=== PATIENT | female | born 1985 | race Caucasian/White ===

== ENCOUNTER 2022-11-17 20:17 | Outpatient (REF) | payer OTHER, SELFPAY ==
[2022-11-22 09:09] LABS: Age Gdln ACOG Testing Note (.); HPV Aptima Negative (Negative); IGP, Aptima HPV, rfx 16/18,45 Note (.)
== END 2022-11-17 20:18 | disposition home or self-care (01) ==
LOC: LAB 20:17
PROVIDERS: Visit Provider Obstetrics & Gynecology
DX: Z01.419 Encounter for gynecological examination (general) (routine) without abnormal findings (principal)
CPT/HCPCS: 87624; G0145

== ENCOUNTER 2023-01-15 11:17 | Outpatient (OUT) | payer OTHER, SELFPAY ==
[2023-01-15 12:33] LABS: Basophils Absolute Auto 0.1 10^3/uL (0.0-0.1); Basophils Percent Auto 0.4 % (0.2-2.0); Eosinophils Absolute Auto 0.2 10^3/uL (0.0-0.7); Eosinophils Percent Auto 1.3 % (0.9-7.0); Hematocrit 38.6 % (36.0-48.0); Hemoglobin 12.7 g/dL (12.0-16.0); Immature Granulocytes Abs Auto 0.11 10^3/uL (0.00-0.03); Immature Granulocytes Pct Auto 0.9 % (0.0-0.5); Lymphocytes Absolute Auto 2.2 10^3/uL (1.2-3.8); Lymphocytes Percent Auto 18.2 % (20.5-60.0); Mean Corpuscular HGB Conc 32.9 g/dL (29.9-35.2); Mean Corpuscular Hemoglobin 29.8 pg (26.7-34.0); Mean Corpuscular Volume 90.6 fL (81.0-99.0); Mean Platelet Volume 8.8 fL (9.5-13.5); Monocytes Absolute Auto 0.5 10^3/uL (0.3-0.8); Neutrophils Absolute Auto 8.9 10^3/uL (1.4-6.5); Neutrophils Percent Auto 75.2 % (43.0-75.0); Platelet Count 297 10^3/uL (150-450); Red Blood Count 4.26 10^6/uL (4.20-5.40); Red Cell Distribution Width 13.5 % (11.0-15.0); White Blood Count 11.8 10^3/uL (4.0-11.0)
[2023-01-15 12:39] LABS: Glucose 1 Hour 148 mg/dL
== END 2023-01-15 11:18 | disposition home or self-care (01) ==
LOC: LAB 11:17
PROVIDERS: Visit Provider Physician Assistant
DX: Z34.92 Encounter for supervision of normal pregnancy, unspecified, second trimester (principal)
CPT/HCPCS: 36415; 82950; 85025

== ENCOUNTER 2023-01-22 09:14 | Outpatient (OUT) | payer OTHER, SELFPAY ==
[2023-01-22 09:32] LABS: Glucose Fasting 94 mg/dL (74-106)
[2023-01-22 11:18] LABS: Glucose 1 Hour 163 mg/dL
[2023-01-22 12:08] LABS: Glucose 2 Hour 155 mg/dL
[2023-01-22 13:03] LABS: Glucose 3 Hour 140 mg/dL
== END 2023-01-22 09:15 | disposition home or self-care (01) ==
LOC: LAB 09:15
PROVIDERS: Visit Provider Obstetrics & Gynecology
DX: O99.810 Abnormal glucose complicating pregnancy (principal)
CPT/HCPCS: 36415; 82951; 82952

== ENCOUNTER 2023-02-12 12:52 | Outpatient (OUT) | payer OTHER, SELFPAY ==
--- NOTE | 2023-02-12 12:55 | US_ITS ---
The [address] [address] Patient Name: GERTRUDIS MARINELLI MRN: [id number] date: 1985 Sex: F Assigned Patient Location: Current Patient Location: Accession/Order Number: [id number] Exam Date: 02/12/2023 12:55 Report Date: 02/13/2023 02:01 At the request of: ALVIN SPEAR Procedure: US OB growth EXAMINATION: US OB growth HISTORY: size inconsistent with dates O26.849 COMPARISON: No relevant comparison available. FINDINGS: Heart Rate: 145.2 bpm Number: 1.0 Position: CEPHALIC Amniotic Fluid Volume: 18.1 cm Maximum Vertical Pocket: 5.67 m BIOMETRY: BPD: 7.7 cm cm; 30 weeks 6 days ; 93% HC: 27.2 cmcm; 29 weeks 5 days; 46% AC: 24.1 cm cm; 28 weeks 3 days; 33% FL: 5.6 cm cm; 29 weeks 3 days; 55% EFW: 1323.2 grams; 49% FL/AC: 23.2 FL/BPD: 72.6 HC/AC: 1.1 GESTATIONAL AGE: Age by EDC: 28 weeks 5 days BARTOLO by EDC: 05/02/2023 Age by US: 29 weeks 4 days BARTOLO by US: 04/26/2023 US/US OB growth IMPRESSION: 1. Single live intrauterine with growth detailed above. Electronically authenticated by: TRAM DE LA CRUZ Date: 02/13/2023 02:01
== END 2023-02-12 12:53 | disposition home or self-care (01) ==
LOC: US 12:52
PROVIDERS: Visit Provider Obstetrics & Gynecology
DX: O26.843 Uterine size-date discrepancy, third trimester (principal); Z3A.28 28 weeks gestation of pregnancy
CPT/HCPCS: 76816

== ENCOUNTER 2023-02-15 10:15 | Outpatient (OUT) | payer OTHER, SELFPAY ==
[2023-02-15 11:34] LABS: Alanine Aminotransferase 16 U/L (14-59); Albumin Globulin Ratio 0.7; Albumin Level 2.6 g/dL (3.4-5.0); Alkaline Phosphatase 100 U/L (46-116); Aspartate Amino Transferase 11 U/L (15-37); BUN Creatinine Ratio 12.5; Bilirubin Total 0.3 mg/dL (0.2-1.0); Calcium 9.3 mg/dL (8.5-10.1); Carbon Dioxide 22.3 mmol/L (21.0-32.0); Chloride 105 mmol/L (98-107); Estimated GFR (African America >60 (>=60); Estimated GFR (Non-African Ame >60 (>=60); Globulin 3.8 g/dL; Glucose 112 mg/dL (74-106); Potassium 3.3 mmol/L (3.5-5.1); Sodium 140 mmol/L (136-145); Total Protein 6.4 g/dL (6.4-8.2)
[2023-02-15 15:48] LABS: Total Volume 24 Hour Urine 1750 mL/24hr
== END 2023-02-15 10:16 | disposition home or self-care (01) ==
LOC: LAB 10:15
PROVIDERS: Visit Provider Obstetrics & Gynecology
DX: O10.919 Unspecified pre-existing hypertension complicating pregnancy, unspecified trimester (principal); Z3A.00 Weeks of gestation of pregnancy not specified
CPT/HCPCS: 36415; 80053; 84156

== ENCOUNTER 2023-02-16 17:26 | Outpatient (OUT) | payer OTHER, SELFPAY ==
[2023-02-16 17:45] VITALS: BP 136/64; PULSE 86
[2023-02-16 17:51] VITALS: BP 103/57; PULSE 96
--- NOTE | 2023-02-16 18:27 | US_ITS ---
[address] [address] Patient Name: GERTRUDIS MARINELLI MRN: [facility]:[id number] date: 1985 Sex: F Assigned Patient Location: [facility] Current Patient Location: [facility] Accession/Order Number: [id number] Exam Date: 02/16/2023 18:33 Report Date: 02/16/2023 20:04 At the request of: ALVIN SPEAR Procedure: US OB cervical length EXAM: US OB cervical length HISTORY: abdominal pain COMPARISON: None. TECHNIQUE: Limited OB ultrasound is performed for evaluation of cervical length FINDINGS: Single live intrauterine seen with which presentation and longitudinal lie. heart rate is 144 beats per minute. The cervix appears closed and measures 3.5 cm in length. US/US OB cervical length IMPRESSION: Single live intrauterine seen with which presentation and longitudinal lie. heart rate is 144 beats per minute. The cervix appears closed and measures 3.5 cm in length. Electronically authenticated by: FRANK BELTRAN Date: 02/16/2023 20:04
[2023-02-16 18:58] LABS: Hematocrit 36.2 % (36.0-48.0); Hemoglobin 12.1 g/dL (12.0-16.0); Mean Corpuscular HGB Conc 33.4 g/dL (29.9-35.2); Mean Corpuscular Hemoglobin 30.7 pg (26.7-34.0); Mean Corpuscular Volume 91.9 fL (81.0-99.0); Mean Platelet Volume 8.9 fL (9.5-13.5); Platelet Count 281 10^3/uL (150-450); Red Blood Count 3.94 10^6/uL (4.20-5.40); Red Cell Distribution Width 13.1 % (11.0-15.0); White Blood Count 14.8 10^3/uL (4.0-11.0)
--- NOTE | 2023-02-16 19:02 | PC.NURSE ---
1844 clenches up in pain, states feels pain across epigastric area and all across lower abdomen, tearful, holds belly with pain-efm off and up to void then labs done
--- NOTE | 2023-02-16 19:07 | PC.NURSE ---
cervical length done
[2023-02-16 19:12] LABS: Alanine Aminotransferase 18 U/L (14-59); Aspartate Amino Transferase 13 U/L (15-37); Estimated GFR (African America >60 (>=60); Estimated GFR (Non-African Ame >60 (>=60)
--- NOTE | 2023-02-16 19:18 | US_ITS ---
[address] [address] Patient Name: GERTRUDIS MARINELLI MRN: [id number] date: 1985 Sex: F Assigned Patient Location: [facility] Current Patient Location: LAB Accession/Order Number: [id number] Exam Date: 02/16/2023 19:20 Report Date: 02/16/2023 21:02 At the request of: ALVIN SPEAR Procedure: US appendix RIGHT UPPER QUADRANT AND APPENDIX ULTRASOUND HISTORY: 3 week history of abdominal pain COMPARISON: None. TECHNIQUE: Sonography of the right upper quadrant and appendix was performed. Images were obtained and stored in a permanent archive. RESULTS: Pancreas: Limited evaluation due to overlying bowel gas. Liver: Echotexture: Normal, homogeneous. Echogenicity: Normal Surface contour: Smooth Lesions: None. Biliary: No intrahepatic biliary duct dilation. CBD: 0.4 cm at the hilum. Gallbladder: Normal caliber -Contents: No cholelithiasis -Wall: Normal -Other: No pericholecystic fluid. Right Kidney: No hydronephrosis. Ascites: None. Appendix: Nonvisualized due to overlying bowel gas. Benign-appearing lymph nodes in the right lower quadrant which measure 3.8 x 1.3 x 0.6 cm and 1.6 x 1.2 x 1.4 cm. . US/US appendix IMPRESSION: NORMAL SONOGRAPHIC APPEARANCE OF THE RIGHT UPPER QUADRANT. NONVISUALIZED APPENDIX. Electronically authenticated by: ANATOLY GUERRA Date: 02/16/2023 21:02
--- NOTE | 2023-02-16 19:18 | US_ITS ---
[address] [address] Patient Name: GERTRUDIS MARINELLI MRN: [id number] date: 1985 Sex: F Assigned Patient Location: [facility] Current Patient Location: LAB Accession/Order Number: [id number] Exam Date: 02/16/2023 19:20 Report Date: 02/16/2023 21:02 At the request of: ALVIN SPEAR Procedure: US right upper quadrant RIGHT UPPER QUADRANT AND APPENDIX ULTRASOUND HISTORY: 3 week history of abdominal pain COMPARISON: None. TECHNIQUE: Sonography of the right upper quadrant and appendix was performed. Images were obtained and stored in a permanent archive. RESULTS: Pancreas: Limited evaluation due to overlying bowel gas. Liver: Echotexture: Normal, homogeneous. Echogenicity: Normal Surface contour: Smooth Lesions: None. Biliary: No intrahepatic biliary duct dilation. CBD: 0.4 cm at the hilum. Gallbladder: Normal caliber -Contents: No cholelithiasis -Wall: Normal -Other: No pericholecystic fluid. Right Kidney: No hydronephrosis. Ascites: None. Appendix: Nonvisualized due to overlying bowel gas. Benign-appearing lymph nodes in the right lower quadrant which measure 3.8 x 1.3 x 0.6 cm and 1.6 x 1.2 x 1.4 cm. . US/US right upper quadrant IMPRESSION: NORMAL SONOGRAPHIC APPEARANCE OF THE RIGHT UPPER QUADRANT. NONVISUALIZED APPENDIX. Electronically authenticated by: ANATOLY GUERRA Date: 02/16/2023 21:02
--- NOTE | 2023-02-16 20:13 | PC.NURSE ---
us [email or web address] states completed us of nano trejo and appendix
[2023-02-16] MEDS: ACETAMINOPHEN 500 MG TABLET 1000 MG PO (21:00)
[2023-02-16] MEDS: ONDANSETRON PF 4 MG/2 ML VIAL IV (21:00)
[2023-02-16] MEDS: 0.9 % SODIUM CHLORIDE 1,000 ML 1000 ML IV (21:01)
[2023-02-16] MEDS: PANTOPRAZOLE SODIUM 40 MG VIAL IV (21:06)
[2023-02-16] MEDS: 0.9 % SODIUM CHLORIDE 1,000 ML 125 ML IV (21:47)
[2023-02-16 22:23] VITALS: BP 144/77; PULSE 91; RESP 16
[2023-02-16] MEDS: LABETALOL HCL 200 MG TABLET 100 MG PO (22:25)
[2023-02-17 01:10] VITALS: BP 112/57; PULSE 95; RESP 16; TEMP 36.8
[2023-02-17 01:26] LABS: Bilirubin Urine SMALL (NEGATIVE); Blood Urine NEGATIVE (NEGATIVE); Clarity Urine CLEAR (CLEAR); Color Urine YELLOW (YELLOW); Glucose Urine UA NEGATIVE (NEGATIVE); Ketones Urine >=80 mg/dL (NEGATIVE); Leukocyte Esterase Urine NEGATIVE (NEGATIVE); Nitrite Urine NEGATIVE (NEGATIVE); Protein Urine TRACE mg/dL (NEG/TRACE); Specific Gravity Urine 1.025 (1.005-1.025); pH Urine 6.5 (5.0-9.0)
[2023-02-17 04:56] LABS: Bilirubin Urine SMALL (NEGATIVE); Blood Urine NEGATIVE (NEGATIVE); Clarity Urine CLEAR (CLEAR); Color Urine YELLOW (YELLOW); Glucose Urine UA NEGATIVE (NEGATIVE); Ketones Urine >=80 mg/dL (NEGATIVE); Leukocyte Esterase Urine NEGATIVE (NEGATIVE); Nitrite Urine NEGATIVE (NEGATIVE); Protein Urine TRACE mg/dL (NEG/TRACE); Specific Gravity Urine 1.025 (1.005-1.025); pH Urine 6.5 (5.0-9.0)
[2023-02-17 04:58] LABS: Urine Microscopic Indicated YES
[2023-02-17 04:59] LABS: Squamous Epithelial Cell Urine MANY #/LPF (NONE/RARE)
[2023-02-17 05:00] LABS: Mucus Urine LARGE (NONE SEEN)
[2023-02-17 05:03] LABS: Bacteria Urine MODERATE #/HPF (NONE SEEN); Crystals Seen? None Seen #/HPF (None Seen); RBC Urine 0-2 #/HPF (0-2); WBC Urine 0-2 #/HPF (NONE SEEN)
[2023-02-17 05:04] LABS: Cast Seen? NONE SEEN #/LPF (NONE SEEN); Urine Culture Indicated YES
[2023-02-17 05:48] VITALS: BP 127/58; PULSE 83; RESP 16; TEMP 36.8
--- NOTE | 2023-02-17 07:15 | P.OBPN_ITS ---
OB - PN: Subj Subjective Interval history: 37 yo at 29 3/7wks with epigastric pain, pt complains of mild nausea. denies bm, positive flatus, denies vomiting Exam Constitutional Vital Signs, click to edit/add: Last Vital Signs Temp 98.2 F 02/17/23 05:48 Pulse 83 02/17/23 05:48 Resp 16 02/17/23 05:48 BP 127/58 02/17/23 05:48 Documenting provider has reviewed patient's vital signs: yes Common normals: no apparent distress Respiratory Common normals: normal respiratory effort and clear to auscultation bilaterally Cardio Common normals: regular rate and regular rhythm GI Common normals: Normal to inspection, nondistended, normoactive bowel sounds present Extremity Common normals: no clubbing, cyanosis or edema and no calf tenderness Results Labs Labs: Short CBC 02/16/23 Range/Units 18:50 WBC 14.8 H (4.0-11.0) 10^3/uL Hgb 12.1 (12.0-16.0) g/dL Hct 36.2 (36.0-48.0) % Plt Count 281 (150-450) 10^3/uL BMP 02/16/23 18:50 BUN 6.0 L Creatinine 0.51 L Liver Function 02/16/23 Range/Units 18:50 AST 13 L (15-37) U/L ALT 18 (14-59) U/L Urine 02/16/23 02/17/23 Range/Units 00:30 00:00 Urine Color Yellow Yellow (YELLOW) Urine Clarity Clear Clear (CLEAR) Urine pH 6.5 6.5 (5.0-9.0) Ur Specific [place] 1.025 1.025 (1.005-1.025) Urine Protein Trace Trace (NEG/TRACE) mg/dL Urine Glucose (UA) Negative Negative (NEGATIVE) mg/dL OB - PN: A/P Assessment and Plan (1) Epigastric pain: Plan iup at 29 3/7wks, epigastric pain-pain resolved, rx for colace, labs and ultrasound reviewed, fu as scheduled, precautions given Time Spent with Patient Time: Total time spent is greater than 50% in coordination of care (as documented) at patient's floor/unit and/or counseling patient: Total time spent with greater than 50% in coordination of care (as documented) at patient's floor/unit and/or counseling patient: 25 - 35 minutes
[2023-02-17 07:41] VITALS: BP 141/84; PULSE 93
[2023-02-17 07:50] VITALS: RESP 18; TEMP 37
--- NOTE | 2023-02-17 08:33 | PC.NURSE ---
appears comfortable and cheerful, states feeling much better today, seen by Dr Martínez and orders breakfast. states started feeling better now after receiving protonix and has had BM this am
[2023-02-17] MEDS: ONDANSETRON 4 MG RAPDIS TABLET SL (09:38)
--- NOTE | 2023-02-17 10:24 | PC.NURSE ---
0940 medicated for nausea with zofran
--- NOTE | 2023-02-17 10:24 | PC.NURSE ---
sitting up in bed taking breakfast,, feels better after zofran dose
[2023-02-17] MEDS: LABETALOL HCL 200 MG TABLET 100 MG PO (10:35)
== END 2023-02-17 10:44 | disposition home or self-care (01) ==
LOC: FBCO 17:26 → FBC 17:32
PROVIDERS: Visit Provider Obstetrics & Gynecology
DX: O26.893 Other specified pregnancy related conditions, third trimester (principal); R10.13 Epigastric pain; Z3A.29 29 weeks gestation of pregnancy
CPT/HCPCS: 36415; 76705; 76817; 81001; 81003; 82565; 84450; 84460; 84520; 85027; 87086; 96374; 96375; G0378; G0379

== ENCOUNTER 2023-03-08 07:54 | Outpatient (OUT) | payer OTHER, SELFPAY ==
--- NOTE | 2023-03-08 16:00 | US_ITS ---
[address] [address] Patient Name: GERTRUDIS MARINELLI MRN: [id number] date: 1985 Sex: F Assigned Patient Location: [facility] Current Patient Location: US Accession/Order Number: [id number] Exam Date: 03/08/2023 16:05 Report Date: 03/09/2023 07:30 At the request of: ALVIN SPEAR Procedure: US OB growth EXAMINATION: US OB growth HISTORY: SIZE INCONSISTENT WITH DATES O26.649 COMPARISON: No relevant comparison available. FINDINGS: Heart Rate: 141.4 bpm Amniotic Fluid Volume: 16.9 cm Number: 1.0 Position: Cephalic presentation, longitudinal lie Placenta:r areas of anechoic echogenicity likely a central, 2.9 cm Maximum Vertical Pocket: 6.5 cm cm 4.2 cm cm 2.4 cm cm 3.7 cm cm BIOMETRY: BPD: 8.6 cm cm; 34 weeks 5 days; 96% HC: 32.2 cmcm; 36 weeks 2 days , > 97% AC: 28.1 cm cm; 32 weeks 1 days, 49% FL: 6.1 cm cm; 31 weeks 5 days; 25.5 % % EFW: 2014.6 grams, 40 lbs. 7 oz., 55% FL/AC: 21.7 FL/BPD: 71.0 HC/AC: 1.1 GESTATIONAL AGE: Age by EDC: 32 weeks 1 days BARTOLO by EDC: 05/02/2023 Age by US: 33 weeks 5 days BARTOLO by US: 04/21/2023 US/US OB growth IMPRESSION: BPD and head circumference greater than the 95th percentile, otherwise normal interval growth Electronically authenticated by: ADRIANA ZHANG Date: 03/09/2023 07:30
--- NOTE | 2023-03-08 16:00 | US_ITS ---
[address] [address] Patient Name: GERTRUDIS MARINELLI MRN: [id number] date: 1985 Sex: F Assigned Patient Location: [facility] Current Patient Location: US Accession/Order Number: [id number] Exam Date: 03/08/2023 16:05 Report Date: 03/09/2023 07:30 At the request of: ALVIN SPEAR Procedure: US OB BPP w non-stress EXAMINATION: US OB growth HISTORY: SIZE INCONSISTENT WITH DATES O26.649 COMPARISON: No relevant comparison available. FINDINGS: Heart Rate: 141.4 bpm Amniotic Fluid Volume: 16.9 cm Number: 1.0 Position: Cephalic presentation, longitudinal lie Placenta:r areas of anechoic echogenicity likely a central, 2.9 cm Maximum Vertical Pocket: 6.5 cm cm 4.2 cm cm 2.4 cm cm 3.7 cm cm BIOMETRY: BPD: 8.6 cm cm; 34 weeks 5 days; 96% HC: 32.2 cmcm; 36 weeks 2 days , > 97% AC: 28.1 cm cm; 32 weeks 1 days, 49% FL: 6.1 cm cm; 31 weeks 5 days; 25.5 % % EFW: 2014.6 grams, 40 lbs. 7 oz., 55% FL/AC: 21.7 FL/BPD: 71.0 HC/AC: 1.1 GESTATIONAL AGE: Age by EDC: 32 weeks 1 days BARTOLO by EDC: 05/02/2023 Age by US: 33 weeks 5 days BARTOLO by US: 04/21/2023 US/US OB BPP w non-stress IMPRESSION: BPD and head circumference greater than the 95th percentile, otherwise normal interval growth Electronically authenticated by: ADRIANA ZHANG Date: 03/09/2023 07:30
[2023-03-08 16:55] VITALS: BP 139/85; PULSE 88
== END 2023-03-08 17:20 | disposition home or self-care (01) ==
LOC: US 07:58 → FBC 15:58
PROVIDERS: Visit Provider Obstetrics & Gynecology
DX: O26.843 Uterine size-date discrepancy, third trimester (principal); Z3A.32 32 weeks gestation of pregnancy
CPT/HCPCS: 76816; 76818

== ENCOUNTER 2023-03-11 07:26 | Outpatient (OUT) | payer OTHER, SELFPAY ==
[2023-03-11 15:45] VITALS: BP 131/88; PULSE 108
== END 2023-03-11 16:14 ==
LOC: FBCO 07:26 → FBC 15:37
PROVIDERS: Visit Provider Obstetrics & Gynecology
DX: O26.843 Uterine size-date discrepancy, third trimester (principal); Z3A.00 Weeks of gestation of pregnancy not specified
CPT/HCPCS: 59025

== ENCOUNTER 2023-03-15 07:35 | Outpatient (OUT) | payer OTHER, SELFPAY ==
--- NOTE | 2023-03-15 16:16 | US_ITS ---
[address] [address] Patient Name: GERTRUDIS MARINELLI MRN: [facility]:[id number] date: 1985 Sex: F Assigned Patient Location: [facility] Current Patient Location: Accession/Order Number: [id number] Exam Date: 03/15/2023 16:25 Report Date: 03/16/2023 21:07 At the request of: ALVIN SPEAR Procedure: US OB BPP w non-stress EXAMINATION: US OB BPP w non-stress HISTORY: SIZE INCONSISTENT WITH DATES O28.849 COMPARISON: Ultrasound OB biophysical 03/08/2023 TECHNIQUE: Ultrasound biophysical profile was performed in the radiology department. BREATHING MOVEMENTS: 2.0 GROSS BODY MOVEMENTS: 2.0 TONE: 2.0 QUALITATIVE AMNIOTIC FLUID VOLUME: 2.0 PRESENTATION: CEPHALIC HEART RATE: 150.0 bpm AMNIOTIC FLUID VOLUME: 18.2 cm GESTATIONAL AGE: 33 weeks 1 days CONCLUSION: 1. Total biophysical profile score 8.0. 2. Multiple small, irregular anechoic areas scattered within the placenta; nonspecific but likely venous lakes. Electronically authenticated by: TRAM DE LA CRUZ Date: 03/16/2023 21:07
[2023-03-15 16:24] VITALS: BP 138/92; PULSE 105
== END 2023-03-15 17:01 | disposition home or self-care (01) ==
LOC: US 07:37 → FBC 15:58
PROVIDERS: Visit Provider Obstetrics & Gynecology
DX: O26.843 Uterine size-date discrepancy, third trimester (principal); Z3A.33 33 weeks gestation of pregnancy
CPT/HCPCS: 76818

== ENCOUNTER 2023-03-18 07:28 | Outpatient (OUT) | payer OTHER, SELFPAY ==
[2023-03-18 15:46] VITALS: BP 134/81; PULSE 104
== END 2023-03-18 16:15 | disposition home or self-care (01) ==
LOC: FBCO 07:39 → FBC 15:36
PROVIDERS: Visit Provider Obstetrics & Gynecology
DX: O26.843 Uterine size-date discrepancy, third trimester (principal)
CPT/HCPCS: 59025

== ENCOUNTER 2023-03-22 17:45 | Observation (INO) | payer OTHER, SELFPAY ==
[2023-03-22] VITALS (13 sets, daily range): BP systolic 132–180; BP diastolic 80–112; PULSE 96–109; RESP 18–20; TEMP 36.5
--- NOTE | 2023-03-22 16:01 | US_ITS ---
[address] [address] Patient Name: GERTRUDIS MARINELLI MRN: [id number] date: 1985 Sex: F Assigned Patient Location: [facility] Current Patient Location: Accession/Order Number: [id number] Exam Date: 03/22/2023 16:10 Report Date: 03/23/2023 16:44 At the request of: ALVIN SPEAR Procedure: US OB BPP w non-stress EXAMINATION: US OB BPP w non-stress HISTORY: SIZE INCONSISTENT WITH DATES O28.849 COMPARISON: No relevant comparison available. TECHNIQUE: Ultrasound biophysical profile was performed in the radiology department. . FINDINGS: BREATHING MOVEMENTS: 2 GROSS BODY MOVEMENTS: 2 TONE: 2 QUALITATIVE AMNIOTIC FLUID VOLUME: 2 PRESENTATION: BREECH HEART RATE: 136.4 bpm H.B./min AMNIOTIC FLUID VOLUME: 19.0 cm cm GESTATIONAL AGE: 34 weeks 1 days CONCLUSION: Total biophysical profile score: 8 Electronically authenticated by: ADRIANA ZHANG Date: 03/23/2023 16:44
[2023-03-22] MEDS: BETAMETHASONE ACE/BETAMETHASONE SOD PHOS 30 MG/5 ML 12 MG IM (18:12)
[2023-03-22] MEDS: LABETALOL HCL 200 MG TABLET PO (18:18)
[2023-03-22 18:28] LABS: Basophils Percent Auto 0.2 % (0.2-2.0); Eosinophils Absolute Auto 0.1 10^3/uL (0.0-0.7); Eosinophils Percent Auto 1.1 % (0.9-7.0); Hematocrit 35.5 % (36.0-48.0); Hemoglobin 11.6 g/dL (12.0-16.0); Immature Granulocytes Abs Auto 0.12 10^3/uL (0.00-0.03); Immature Granulocytes Pct Auto 0.9 % (0.0-0.5); Lymphocytes Absolute Auto 2.1 10^3/uL (1.2-3.8); Lymphocytes Percent Auto 16.5 % (20.5-60.0); Mean Corpuscular HGB Conc 32.7 g/dL (29.9-35.2); Mean Corpuscular Hemoglobin 29.3 pg (26.7-34.0); Mean Corpuscular Volume 89.6 fL (81.0-99.0); Mean Platelet Volume 9.5 fL (9.5-13.5); Monocytes Absolute Auto 0.8 10^3/uL (0.3-0.8); Monocytes Percent Auto 6.5 % (1.7-12.0); Neutrophils Absolute Auto 9.6 10^3/uL (1.4-6.5); Neutrophils Percent Auto 74.8 % (43.0-75.0); Platelet Count 270 10^3/uL (150-450); Red Blood Count 3.96 10^6/uL (4.20-5.40); Red Cell Distribution Width 12.8 % (11.0-15.0); White Blood Count 12.8 10^3/uL (4.0-11.0)
[2023-03-22 18:39] LABS: Alanine Aminotransferase 24 U/L (14-59); Aspartate Amino Transferase 12 U/L (15-37); Lactate Dehydrogenase 161 U/L (81-234); Uric Acid 3.4 mg/dL (2.6-6.0)
--- NOTE | 2023-03-22 18:46 | PC.NURSE ---
1750: transferred to room 252 and plan of care discussed. 1805: celestone 12 mg IM. 1820 : labetalol 200 mg po
--- NOTE | 2023-03-22 19:41 | PC.NURSE ---
1830: 24 hour urine started. 1904: Dr Martínez informed of lab results and BP's- orders received and patient informed of plan of care- present. 1914: report to Aubrie Carpenter RN . patient denies headache, blurred vision, or epigastric pain.
[2023-03-23 01:50] VITALS: BP 141/92; PULSE 121
[2023-03-23] MEDS: LABETALOL HCL 200 MG TABLET PO ×2 (01:51→12:52)
[2023-03-23 04:36] VITALS: BP 134/77; PULSE 111
[2023-03-23 04:45] VITALS: RESP 16
--- NOTE | 2023-03-23 07:43 | W.PC.ACHO ---
Registration Status: ADM FERMIN Primary Language: Preferred Language: Active Medications Generic Name Dose Route Start Last Admin Trade Name Eunice PRN Reason Stop Dose Admin Labetalol HCl 200 mg 03/22/23 18:30 03/22/23 18:18 Labetalol Hcl 200 Mg Tablet PO 200 mg BID ADARSH Administration Labetalol HCl 200 mg 03/23/23 02:00 03/23/23 01:51 Labetalol Hcl 200 Mg Tablet PO 200 mg TID ADARSH Administration Respiratory Oxygen Delivery Method Room Air Oxygen Delivery Method Room Air Oxygen Delivery Method Room Air Cardiology Heart Sounds Strong,Regular Heart Sounds Strong,Regular Renal Bladder Pattern Continent Bladder Pattern Continent
[2023-03-23 08:13] VITALS: BP 133/75; PULSE 105
--- NOTE | 2023-03-23 09:19 | PM.OBPN ---
OB - PN: Subj Subjective Interval history: 37 yo at 34wks presents for nst and found to elevated bp, pt non complaint with meds, pt denies n.f.c.v.d, pt denies epigastric pain, headaches or vision changes, pt has no complaints, positive fm, neg ctxns, vb, lof, neg urinary symptoms Patient comments: no complaints Exam Constitutional Vital Signs, click to edit/add: Last Vital Signs Temp 97.7 F 03/22/23 21:54 Pulse 105 H 03/23/23 08:13 Resp 16 03/23/23 04:45 BP 133/75 03/23/23 08:13 O2 Del Method Room Air 03/23/23 04:45 Documenting provider has reviewed patient's vital signs: yes Common normals: no apparent distress Respiratory Common normals: normal respiratory effort and clear to auscultation bilaterally Cardio Common normals: regular rate and regular rhythm GI Common normals: Normal to inspection, nondistended, normoactive bowel sounds present Extremity Common normals: normal to inspection and no calf tenderness Results Labs Labs: Short CBC 03/22/23 Range/Units 18:20 WBC 12.8 H (4.0-11.0) 10^3/uL Hgb 11.6 L (12.0-16.0) g/dL Hct 35.5 L (36.0-48.0) % Plt Count 270 (150-450) 10^3/uL Liver Function 03/22/23 Range/Units 18:20 AST 12 L (15-37) U/L ALT 24 (14-59) U/L OB - PN: A/P Assessment and Plan (1) Chronic hypertension: Plan iup at 34wks, chronic htn, ama, ho pre eclampsia-celestone given, oral labetalol, compliance discussed with patient, pih panel, 24 hr protein Time Spent with Patient Time: Total time spent is greater than 50% in coordination of care (as documented) at patient's floor/unit and/or counseling patient: Total time spent with greater than 50% in coordination of care (as documented) at patient's floor/unit and/or counseling patient: 25 - 35 minutes
[2023-03-23 12:49] VITALS: BP 154/89; PULSE 104
--- NOTE | 2023-03-23 13:27 | PC.NURSE ---
1130: continues with 24 hour collection- denies needs. and daughter visiting.
[2023-03-23 17:39] VITALS: BP 149/88; PULSE 93
[2023-03-23] MEDS: BETAMETHASONE ACE/BETAMETHASONE SOD PHOS 30 MG/5 ML 12 MG IM (18:16)
[2023-03-23 18:30] LABS: Total Protein Urine Random 17.8 mg/dL (<=11.9)
--- NOTE | 2023-03-23 18:32 | PC.NURSE ---
1735 ; EFM applied and reactive NST noted. 1805- celestone 12 mg given IM and 24 hour urine completed and taken to lab. Patient denies headache, blurred vision or epigastric pain. Color pink, skin warm and dry. Lungs clear throughout and abdomen soft and rounded.
[2023-03-23 18:33] LABS: Total Volume 24 Hour Urine 2500 mL/24hr
--- NOTE | 2023-03-23 18:54 | PC.NURSE ---
1845: TC to Dr Martínez- 24 hour urine results reported and order for discharge received. 1850: DC instructions given and patient leaves ambulatory undelivered with prescription for labetalol 200 mg po.
== END 2023-03-23 18:56 | disposition home or self-care (01) ==
LOC: US 18:20 → FBC 18:20
PROVIDERS: Admitting Provider Obstetrics & Gynecology; Visit Provider Obstetrics & Gynecology
DX: O10.913 Unspecified pre-existing hypertension complicating pregnancy, third trimester (principal); O26.843 Uterine size-date discrepancy, third trimester; O09.523 Supervision of elderly multigravida, third trimester; Z91.148 Patient's other noncompliance with medication regimen for other reason; Z3A.34 34 weeks gestation of pregnancy; Z87.59 Personal history of other complications of pregnancy, childbirth and the puerperium
CPT/HCPCS: 36415; 59025; 76818; 83615; 84156; 84450; 84460; 84550; 85025; 96374; 96376; G0378; G0379; J0702

== ENCOUNTER 2023-03-25 07:33 | Outpatient (OUT) | payer OTHER, SELFPAY ==
[2023-03-25 15:35] VITALS: BP 136/91; PULSE 92
[2023-03-25 15:52] VITALS: BP 136/83; PULSE 88
== END 2023-03-25 15:57 | disposition home or self-care (01) ==
LOC: FBCO 07:34 → FBC 15:28
PROVIDERS: Visit Provider Obstetrics & Gynecology
DX: O26.843 Uterine size-date discrepancy, third trimester (principal)
CPT/HCPCS: 59025

== ENCOUNTER 2023-03-29 07:25 | Outpatient (OUT) | payer OTHER, SELFPAY ==
--- NOTE | 2023-03-29 15:59 | US_ITS ---
The [address] [address] Patient Name: GERTRUDIS MARINELLI MRN: [id number] date: 1985 Sex: F Assigned Patient Location: US Current Patient Location: Accession/Order Number: [id number] Exam Date: 03/29/2023 16:33 Report Date: 03/30/2023 15:46 At the request of: ALVIN SPEAR Procedure: US OB BPP w non-stress EXAMINATION: US OB BPP w non-stress HISTORY: Third trimester COMPARISON: No relevant comparison available. TECHNIQUE: Ultrasound biophysical profile was performed in the radiology department. BREATHING MOVEMENTS: 2.0 GROSS BODY MOVEMENTS: 2.0 TONE: 2.0 QUALITATIVE AMNIOTIC FLUID VOLUME: 2.0 PRESENTATION: CEPHALIC HEART RATE: 155.2 bpm bpm. AMNIOTIC FLUID VOLUME: 15.3 cm GESTATIONAL AGE: 35 weeks 1 days CONCLUSION: 1. Total biophysical profile score 8.0. 2. Multiple small venous lakes again seen within placenta. Electronically authenticated by: TRAM DE LA CRUZ Date: 03/30/2023 15:46
[2023-03-29 16:02] VITALS: BP 137/100
[2023-03-29 17:18] VITALS: BP 145/92; PULSE 88
== END 2023-03-29 17:27 | disposition home or self-care (01) ==
LOC: US 07:25 → FBC 15:57
PROVIDERS: Visit Provider Obstetrics & Gynecology
DX: O26.843 Uterine size-date discrepancy, third trimester (principal); Z3A.35 35 weeks gestation of pregnancy
CPT/HCPCS: 76818

== ENCOUNTER 2023-04-01 08:15 | Outpatient (OUT) | payer OTHER, SELFPAY ==
[2023-04-01 15:44] VITALS: BP 124/67; PULSE 90
== END 2023-04-01 16:05 | disposition home or self-care (01) ==
LOC: FBCO 08:16 → FBC 15:35
PROVIDERS: Visit Provider Obstetrics & Gynecology
DX: O26.843 Uterine size-date discrepancy, third trimester (principal); Z3A.00 Weeks of gestation of pregnancy not specified
CPT/HCPCS: 59025

== ENCOUNTER 2023-04-04 20:50 | Outpatient (REF) | payer OTHER, SELFPAY | END 2023-04-04 20:51 | disposition home or self-care (01) | LOC: LAB 20:50 | PROVIDERS: Visit Provider Obstetrics & Gynecology | DX: O26.843 Uterine size-date discrepancy, third trimester (principal) | CPT/HCPCS: 87081; 87150; 87186 ==

== ENCOUNTER 2023-04-05 07:40 | Outpatient (OUT) | payer OTHER, SELFPAY ==
--- NOTE | 2023-04-05 16:00 | US_ITS ---
[address] [address] Patient Name: GERTRUIDS MARINELLI MRN: [facility]:[id number] date: 1985 Sex: F Assigned Patient Location: [facility] Current Patient Location: Accession/Order Number: [id number] Exam Date: 04/05/2023 16:06 Report Date: 04/06/2023 22:12 At the request of: ALVIN SPEAR Procedure: US OB BPP w non-stress EXAMINATION: US OB BPP w non-stress HISTORY: SIZE INCONSISTENT WITH DATES O26.849 COMPARISON: Ultrasound OB biophysical 03/29/2023 TECHNIQUE: Ultrasound biophysical profile was performed in the radiology department. BREATHING MOVEMENTS: 0.0 GROSS BODY MOVEMENTS: 2.0 TONE: 2.0 QUALITATIVE AMNIOTIC FLUID VOLUME: 2.0 PRESENTATION: CEPHALIC HEART RATE: 153.4 bpm bpm. AMNIOTIC FLUID VOLUME: 12.3 cm GESTATIONAL AGE: 36 weeks 1 days CONCLUSION: Total biophysical profile score 6.0. Electronically authenticated by: TRAM DE LA CRUZ Date: 04/06/2023 22:12
--- NOTE | 2023-04-05 16:01 | US_ITS ---
[address] [address] Patient Name: GERTRUDIS MARINELLI MRN: [id number] date: 1985 Sex: F Assigned Patient Location: [facility] Current Patient Location: US Accession/Order Number: [id number] Exam Date: 04/05/2023 16:06 Report Date: 04/06/2023 22:15 At the request of: ALVIN SPEAR Procedure: US OB growth EXAMINATION: US OB growth HISTORY: SIZE INCONSISTENT WITH DATES O26.849 COMPARISON: ULTRASOUND OB GROWTH 03/08/2023 FINDINGS: Heart Rate: 153.4 bpm Number: 1.0 Position: CEPHALIC Amniotic Fluid Volume: 12.3 cm Maximum Vertical Pocket: 4.3 cm BIOMETRY: BPD: 9.5 cm cm; 38 weeks 4 days; >97% HC: 34.4 cmcm; 39 weeks 5 days ; 94% AC: 31.7 cm cm; 35 weeks 5 days; 46% FL: 6.8 cm cm; 35 weeks 0 days; 19% EFW: 2881.0 grams FL/AC: 21.5 FL/BPD: 72.1 HC/AC: 1.1 GESTATIONAL AGE: Age by EDC: 36 weeks 1 days BARTOLO by EDC: 05/02/2023 Age by US: 37 weeks 2 days BARTOLO by US: 04/24/2023 US/US OB growth IMPRESSION: 1. Single live intrauterine with growth detailed above. 2. Biparietal diameter is greater than 97th percentile. Electronically authenticated by: TRAM DE LA CRUZ Date: 04/06/2023 22:15
[2023-04-05 17:17] VITALS: BP 141/77; PULSE 82
[2023-04-05 17:58] VITALS: BP 128/71; PULSE 93
[2023-04-05 18:13] VITALS: BP 121/62; PULSE 94
[2023-04-05 18:28] VITALS: BP 117/61; PULSE 98
[2023-04-05 18:43] VITALS: BP 118/63; PULSE 95
[2023-04-05 18:58] VITALS: BP 121/65; PULSE 93
== END 2023-04-05 19:05 | disposition home or self-care (01) ==
LOC: US 07:40 → FBC 16:02
PROVIDERS: Visit Provider Obstetrics & Gynecology
DX: O26.843 Uterine size-date discrepancy, third trimester (principal); Z3A.36 36 weeks gestation of pregnancy
CPT/HCPCS: 76816; 76818

== ENCOUNTER 2023-04-06 09:42 | Outpatient (OUT) | payer OTHER, SELFPAY ==
--- NOTE | 2023-04-06 09:43 | US_ITS ---
[address] [address] Patient Name: GERTRUDIS MARINELLI MRN: [facility]:[id number] date: 1985 Sex: F Assigned Patient Location: [facility] Current Patient Location: Accession/Order Number: [id number] Exam Date: 04/06/2023 09:45 Report Date: 04/06/2023 22:16 At the request of: ALVIN SPEAR Procedure: US OB BPP w non-stress EXAMINATION: US OB BPP w non-stress HISTORY: bpp 10/2804/05/23 COMPARISON: Ultrasound OB biophysical 04/05/2023 TECHNIQUE: Ultrasound biophysical profile was performed in the radiology department. BREATHING MOVEMENTS: 2.0 GROSS BODY MOVEMENTS: 2.0 TONE: 2.0 QUALITATIVE AMNIOTIC FLUID VOLUME: 2.0 PRESENTATION: CEPHALIC HEART RATE: 129.2 bpm bpm. AMNIOTIC FLUID VOLUME: 11.3 cm GESTATIONAL AGE: 36 weeks 2 days CONCLUSION: Total biophysical profile score 8.0. Electronically authenticated by: TRAM DE LA CRUZ Date: 04/06/2023 22:16
[2023-04-06 10:01] VITALS: BP 138/76; PULSE 98
--- OUTSIDE RECORDS SUMMARY | 2023-05-10 19:50 | XMS_ITS | CCD ---
Author Name Unknown Address [address] [place] [address] Organization [facility] Care Team Providers Care Adjuster Electrical Contacts Name Role Phone ALVIN MARTÍNEZ Unavailable Unavailable Alvin Martínez Unavailable Unavailable Tanya, Alvin Kearns Unavailable Unavailable Cherri Hurley Unavailable TANYA ., DR ESQUIVEL Admitting Unavailable TANYA ., DR ESQUIVEL Attending Unavailable REQUEST, NONE LISTED Primary Care Unavailashley ZHANG, DR ADRIANA Aguirre Consulting Unavailable TANYA ., DR ESQUIVEL Consulting Unavailable REQUEST, NONE LISTED Consulting Unavaila ble TANYA ., DR ESQUIVEL Admitting Unavailable TANYA ., DR ESQUIVEL Attending Unavailable REQUEST, DR GREENBERG LISTED Primary Care Unavaila ble TANYA ., DR ESQUIVEL Consulting Unavailable TANYA, ALVIN Attending Unavailable TANYA, ALVIN Attending Unavailable NICOLE LYNCH Attending Unavailable Medications Current Medications Medication Drug Class(es) Dates Sig (Normalized) Sig (Original) Omeprazole (1 source) Proton Pump Inhibitor Omeprazole Active penicillin v potassium 500 mg oral tablet (1 source) Start: 08-19-2022 take 1 tablet by mouth every twelve hours Penicillin V Potassium 500 MG 1 tablet Orally Twice a day for 10 day(s) Jul, Active Problems Problem Classification Problem Date Documented Da te Episodic/Chronic Disorders of teeth and jaw (1 source) Dental caries, unspecified Episodic Menstrual disorders (4 sources) Irregular menstruation, unspecified; Translations: [IRREGULAR MENSTRUATION UNSPECIFIED] Onset: 09-23-2022 Chronic Other and delivery including normal (1 source) Encounter for supervision of normal , unspecified, first trimester; Translations: [ENC SUP NORMAL PREG UNS FIRST TRI] Onset: 09-30-2022 Episodic Residual codes; unclassified (1 source) 8 weeks gestation of ; Translations: [8 WEEKS GESTATION OF ] Onset: 09-30-2022 Episodic Results Test Name Value Interpretation Reference Range Facil ity HEP B SURFACE ANTIGEN SCREEN on 10-03-2022 HBsAg Screen Negative Normal Negative [facility] Comment on above: Performed By: #### H BSANS #### [facility] [address] [address] [address] Zeferino Evans HEPATITIS C VIRUS AB W/ REFL EX QUANTon 10-03-2022 HCV AB Non-Reactive Normal Non Reactive [facility] Comment on above: Performed By: #### H CVPCRR #### [facility] [address] [address] [address] Zeferino Evans Interpretation: Comment Normal [facility] Comment on above: Result Comment: Not infected with HCV unless early or acute infection is suspected (which may be delayed in an immunocompromised individual), or other evidence exists to indicate HCV infection. Performed By: #### H CVPCRR #### [facility] [address] [address] [address] Zeferino Evans HIV 1 AND 2 WITH REFLEXon HIV Screen 4th Generation wRfx Non-Reactive Normal Non Reactive [facility] Comment on above: Result Comment: HIV Negative HIV-1/HIV-2 antibodies and HIV-1 p24 antigen were NOT detected. There is no laboratory evidence of HIV infection. Performed By: #### H IV12 #### [facility] [address] [address] [address] Zeferino Evans RPR QUANTon 10-03-2022 Rapid Plasma Reagin, Quant Non-Reactive Normal NonRea< 1:1 [facility] Comment on above: Result Comment: Plea se Note: This test does not meet current guidelines for screening and diagnosis of syphilis. This test is intended for following treatment response in patients being treated for syphilis infection. To screen for syphilis infection, a reflex cascade that includes both RPR and a treponema-specific assay should be utilized, such as Treponema pallidum (Syphilis) Screening [place] (619380) or Rapid Plasma Reagin (RPR) Test With Reflex to Quantitative RPR and Confirmatory Treponema pallidum Antibodies (152830). Performed By: #### R PRQ #### [facility] [address] [place] [address] Dr. Zeferino Evans RUBELLA AB IGGon 10-03-2022 Rubella Antibodies, IgG 6.38 index Normal Immune >0.99 [facility] Comment on above: Result Comment: Non- immune <0.90 Equivocal 0.90 - 0.99 Immune >0.99 Performed By: #### R UBIGG #### [facility] [address] [place] [address] Dr. Zeferino Evans BOX TEST SENT OUTon 10-03-19 SENT TO REF LAB 10/02/2022 Normal [facility] Comment on above: Result Comment: Prev iously reported as: 10/02/2025 On 10/02/2022 11:17 By LRP Performed By: #### U RCX #### [facility] [address] [place] [address] Dr. Zeferino Evans CBC AUTO DIFFon 10-02-2022 BASO # 0.0 103/ul Normal 0.0-0.1 [facility] Comment on above: Performed By: #### C BC #### [facility] [address] [place] [address] Dr. Zeferino Evans Basophils/100 WBC (Bld) 0.3 % Normal 0.2-2.0 [facility] Comment on above: Performed By: #### C BC #### [facility] [address] [place] [address] Dr. Zeferino Evans EO # 0.1 103/ul Normal 0.0-0.7 [facility] Comment on above: Performed By: #### C BC #### [facility] [address] [place] [address] Dr. Zeferino Evans Eosinophils/100 WBC (Bld) 1.0 % Normal 0.9-7.0 [facility] Comment on above: Performed By: #### C BC #### [facility] [address] [place] [address] Dr. Zeferino Evans Erythrocyte distribution wid th (RBC) [Ratio] 12.7 % Normal 11.0-15.0 [facility] Comment on above: Performed By: #### C BC #### [facility] [address] [place] [address] Dr. Zeferino Evans Hematocrit (Bld) [Volume fraction] 42.7 % Normal 3 6.0-48.0 [facility] Comment on above: Performed By: #### C BC #### [facility] [address] [place] [address] Dr. Zeferino Evans Hemoglobin (Bld) [Mass/Vol] 13.9 g/dL Normal 12.0-16. 0 [facility] Comment on above: Performed By: #### C BC #### [facility] [address] [place] [address] Dr. Zeferino Evans IG # 0.03 10e3/ul Normal 0.00-0.03 [facility] Comment on above: Performed By: #### C BC #### [facility] [address] [place] [address] Dr. Zeferino Evans IG % 0.3 % Normal 0.0-0.5 [facility] Comment on above: Performed By: #### C BC #### [facility] [address] [place] [address] Dr. Zeferino Evans LYMPH # 2.9 103/ul Normal 1.2-3.8 [facility] Comment on above: Performed By: #### C BC #### [facility] [address] [place] [address] Dr. Zeferino Evans Lymphocytes/100 WBC (Bld) 32.3 % Normal 20.5-60.0 [facility] Comment on above: Performed By: #### C BC #### [facility] [address] [place] [address] Dr. Zeferino Evans MANUAL DIFF REQ NO Normal [facility] Comment on above: Performed By: #### C BC #### [facility] [address] [place] [address] Dr. Zeferino Evans MCH (RBC) [Entitic mass] 28.9 pg Normal 26.7-34.0 [facility] Comment on above: Performed By: #### C BC #### [facility] [address] [address] [address] Zeferino Evans MCHC (RBC) [Mass/Vol] 32.6 g/dL Normal 29.9-35.2 [facility] Comment on above: Performed By: #### C BC #### [facility] [address] [place] [address] Dr. Zeferino Evans MCV (RBC) [Entitic vol] 88.8 fL Normal 81.0-99.0 [facility] Comment on above: Performed By: #### C BC #### [facility] [address] [place] [address] Dr. Zeferino Evans MONO # 0.5 103/ul Normal 0.3-0.8 [facility] Comment on above: Performed By: #### C BC #### [facility] [address] [place] [address] Dr. Zeferino Evans Monocytes/100 WBC (Bld) 5.1 % Normal 1.7-12.0 [facility] Comment on above: Performed By: #### C BC #### [facility] [address] [place] [address] Dr. Zeferino Evasn NEUT # 5.5 103/ul Normal 1.4-6.5 [facility] Comment on above: Performed By: #### C BC #### [facility] [address] [place] [address] Dr. Zeferino Evans Neutrophils/100 WBC (Bld) 61.0 % Normal 43.0-75.0 [facility] Comment on above: Performed By: #### C BC #### [facility] [address] [place] [address] Dr. Zeferino Evans Platelet mean volume (Bld) [Entitic vol] 8.8 fL Critically low 9.5-13.5 [facility] Comment on above: Performed By: #### C BC #### [facility] [address] [place] [address] Dr. Zeferino Evans PLT 332 103/ul Normal 150-450 [facility] Comment on above: Performed By: #### C BC #### [facility] [address] [place] [address] Dr. Zeferino Evans RBC 4.81 106/ul Normal 4.20-5.40 [facility] Comment on above: Performed By: #### C BC #### [facility] [address] [place] [address] Dr. Zeferino Evans WBC 9.1 103/ul Normal 4.0-11.0 [facility] Comment on above: Performed By: #### C BC #### [facility] [address] [place] [address] Dr. Zeferino Evans CULTURE URINEon 10-02-2022 CULTURE URINE Culture Observations : HEAVY GROWTH OF MIXED GENITAL MALICK. NO POTENTIAL PATHOGENS SEEN. Normal [facility] Comment on above: Performed By: #### U RCX #### [facility] [address] [place] [address] Dr. Zeferino Evans GLYCOHEMOGLOBIN A1Con 2022 ADA RECOMMENDATION SEE BELOW Normal [facility] Comment on above: Result Comment: ADA RECOMMENDED LIMIT 4.0 - 6.0 ADA THERAPEUTIC TARGET < 7.0 ACTION SUGGESTED > 7.0 Performed By: #### A 1C #### [facility] [address] [place] [address] Dr. Zeferino Evans Glucose [Mass/Vol] 100 mg/dL Normal [facility] Comment on above: Performed By: #### A 1C #### [facility] [address] [place] [address] Dr. Zeferino Evans HbA1c (Bld) [Mass fraction] 5.1 % Normal 4.5-6.2 [facility] Comment on above: Performed By: #### A 1C #### [facility] [address] [place] [address] Dr. Zeferino Evans TSHon 10-02-2022 TSH 1.283 uIU/mL Normal 0.358-3.740 [facility] Comment on above: Performed By: #### T SH #### [facility] [address] [place], [place] [address] Dr. Zeferino Evans TYPE AND SCREENon 10-02-2022 TYPE AND SCREEN Negative Normal [facility] Comment on above: Performed By: #### T NS #### [facility] [id number] Zeferino Evans US PREG TVon 09-23-2022 US PREG TV EXAMINATION: US PREG TV HISTORY: Missed period COMPARISON: No relevant comparison available. FINDINGS: Hernandez intrauterine gestation Gestational sac: 2.94 cm, 7 days CRL: 1.94 cm, 20 oh; 3.1 mm Heart rate: 170 minute Cervix: Closed, 3.1 cm The uterus is normal, anteverted, anteflexed The right ovary is normal. The left ovary is not visualized Clinical age: 10 weeks 5 days Clinical BARTOLO: 04/16/2023 Ultrasound age: 8 weeks 3 days Ultrasound BARTOLO: 05/02/2023 IMPRESSION: Viable hernandez intrauterine gestation measuring 8 weeks 3 days Electronically authenticated by: ADRIANA ZHANG Date: 2022-09-23 17:41 Normal [facility] ital U24 Proteinon 12-16-2017 Protein mass conc (24H U) 245 mg/24hr High 28-141 [facility] Comment on above: Performed By: #### 2 [id number], [id number] ####[facility] [address] [place] [address] Albumin/Protein.total Elph m ass fraction (U) 9.8 mg/dL Invalid Interpretation Code [facility] Comment on above: Result Comment: The reference range and other method performance specifications have not been established for this test; results should be integrated into the clinical context for interpretation. Performed By: #### 2 [id number], [id number] ####[facility] [address] [place] [address] U24 Total Volon 12-16-2017 Hrs Phu 24 hour(s) Invalid Interpretation Code [facility] Comment on above: Order Comment: Order added by Discern Expert Performed By: #### 2 [id number], [id number] ####[facility] [address] [place] [address] Volume unspecified time (U) 2500 mL Invalid Interpretation Code [facility] Comment on above: Order Comment: Order added by Discern Expert Performed By: #### 2 [id number], [id number] ####[facility] [address] [place] [address] U24 Proteinon 12-02-2017 Protein mass conc (24H U) 253 mg/24hr High 28-141 [facility] Comment on above: Performed By: #### 2 [id number], [id number] ####[facility] [address] [place] [address] Albumin/Protein.total Elph m ass fraction (U) 16.3 mg/dL Invalid Interpretation Code [facility] Comment on above: Result Comment: The reference range and other method performance specifications have not been established for this test; results should be integrated into the clinical context for interpretation. Performed By: #### 2 [id number], [id number] ####[facility] [address] [place] [address] U24 Total Volon 12-02-2017 Hrs Phu 24 hour(s) Invalid Interpretation Code [facility] Comment on above: Order Comment: Order added by Discern Expert Performed By: #### 2 [id number], [id number] ####[facility] [address] [place] [address] Volume unspecified time (U) 1550 mL Invalid Interpretation Code [facility] Comment on above: Order Comment: Order added by Discern Expert Performed By: #### 2 [id number], [id number] ####[facility] [address] [place] [address] U24 Proteinon 10-08-2017 Albumin/Protein.total Elph m ass fraction (U) 11.0 mg/dL Invalid Interpretation Code [facility] Comment on above: Result Comment: The reference range and other method performance specifications have not been established for this test; results should be integrated into the clinical context for interpretation. Performed By: #### 2 [id number], [id number] ####[facility] [address] [place] [address] Protein mass conc (24H U) 179 mg/24hr High 28-141 [facility] Comment on above: Performed By: #### 2 [id number], [id number] ####[facility] [address] [place] [address] U24 Total Volon 10-08-2017 Hrs Phu 24 hour(s) Invalid Interpretation Code [facility] Comment on above: Order Comment: Order added by Discern Expert Performed By: #### 2 [id number], [id number] ####[facility] [address] [place] [address] Volume unspecified time (U) 1625 mL Invalid Interpretation Code [facility] Comment on above: Order Comment: Order added by Discern Expert Performed By: #### 2 [id number], [id number] ####[facility] [address] [facility] [place] [address] Vital Signs Date Time Vital Sign Value Performing Clinician Facility 08-19-2022 16:05-0400 Body height 167.64 cm Cherri Hurley Other [facility] 08-19-2022 16:05-0400 Body mass index (BMI) [Ratio] 41.96 kg/m2 Cherri Hurley Other [facility] Other 08-19-2022 16:05-0400 Body temperature 98.2 [degF] Cherri Hurley Other [facility] Other 08-19-2022 16:05-0400 Body weight 117.94 kg Cherri Hurley Other [facility] Other 08-19-2022 16:05-0400 Respiratory rate 18 /min Cherri Hurley Other [facility] Other 08-19-2022 16:05-0400 SaO2% (BldA) [Mass fraction] 98 % Cherri Hurley Other [facility] Other Encounters Encounter Date Encounter Type Care Provider Facility Start: 05-05-2023 End: 05-05-2023 ambulatory NICOLE LYNCH Not Available Start: 04-28-2023 End: 04-28-2023 ambulatory ALVIN MARTÍNEZ Not Available Start: 04-04-2023 End: 04-04-2023 ambulatory ALVIN MARTÍNEZ Not Available Start: 10-02-2022 End: 10-03-[address] ALVIN MARTÍNEZ . Facility: Start: 09-23-2022 End: 09-24-[address] ALVIN MARTÍNEZ . Facility: Start: 08-19-2022 End: 08-19-2022 ambulatory Cherri Hurley Other [facility] Other Start: 08-19-2022 Office outpatient ne w 20 minutes Cherri Hurley [facility] Start: 12-16-2017 End: 12-17-2017 Patient encounter Alvin Michaelso Facility:[facility] Start: 12-02-2017 End: 12-03-2017 Patient encounter Alvin R Tanya Facility:[facility] Start: 10-08-2017 End: 10-09-2017 Patient encounter ALVIN MARTÍNEZ Facility:[facility] Payers Date Payer Category Payer Unknown [id number] [id number] [id number] 1986 Unknown [id number] 2.16.84 [id number] 1986 Unknown [id number] 1986 Unknown [id number] 1986 Unknown [id number] 1959 Unknown [id number] Unknown [id number] 2.1 [id number] Social History Date Type Detail Facility Unknown if ever smoked [facility] Other Sex Assigned At Sex Assigned At Bir th [facility] Other Evaluation note 08-19-2022 Note Date & Type Note Facility 08-19-2022 Evaluation note Encounter Date Diagnosis Assessment Notes Jul, Teeth decayed (ICD-10 - K02.9) Discussed diagnosis with patient. Patient has multiple decaying teeth and current infection. Instructed to start ATB immediately. Warm salt water gargles. Ice to swelling and/or warm compresses prn for pain, ice for 10-20 minutes at a time, ensure thin cloth barrier between skin. Advised to call dentist today. Stressed to patient that she needs to follow up with dentist JEANCARLOS due to risk of infection spreading into bone. Discussed S/S of worsening infection and instructed she should seek immediate evaluation in the ER if she develops any. Seek re-evaluation if no improvement after 48 hours on ATB. Patient verbalized understanding and agrees with treatment plan. Jul, Other Tooth abscess home care material was printed [facility] Other History general Narrative - Reported Note Date & Type Note Facility History general Narrative - Reported Type Medical History GERD (gastroesophageal reflux di sease) Medical History Anxiety Medical History PCOS Medical History headache Medical History depression Hospitalization History pneumonia Hospitalization History toxemia with [facility] Other Summary Purpose Family History No Family History Records FoundNo Family History Records FoundNo Family History Records Found Advance Directives No Advanced Directives Records FoundNo Advanced Directives Records FoundNo Advanced Directives Records Found Additional Source Comments INFORMATION SOURCE (unrecogn ized section and content) DATE CREATED AUTHOR [facility]17/2017 [facility] DATE CREATED AUTHOR AUTHOR'S ORGANIZ ATION 10/04/2022 [facility] DATE CREATED AUTHOR AUTHOR'S ORGANIZ ATION 05/07/2023 [facility] EPIC REASON FOR VISIT (unrecogniz ed section and content) infection in tooth FOR RECORDS PERTAINING TO PATIENTS WHO ARE OR HAVE BEEN ENROLLED IN A CHEMICAL DEPENDENCY/SUBSTANCEABUSE PROGRAM, SOME INFORMATION MAY BE OMITTED. This clinical summary was aggregated from multiple sources. Caution should be exercised in using it in the provision of clinical care. This summary normalizes information from multiple sources, and as a consequence, information in this document may materially change the coding, format and clinical context of patient data. In addition, data may be omitted in some cases. CLINICAL DECISIONS SHOULD BE BASED ON THE PRIMARY CLINICAL RECORDS. [facility] [employer] [facility]. provides no warranty or guarantee of the accuracy or completeness of information in this document.
== END 2023-04-06 10:25 | disposition home or self-care (01) ==
LOC: FBCO 09:42 → FBC 09:43
PROVIDERS: Visit Provider Obstetrics & Gynecology
DX: Z34.93 Encounter for supervision of normal pregnancy, unspecified, third trimester (principal); O26.843 Uterine size-date discrepancy, third trimester; Z3A.36 36 weeks gestation of pregnancy
CPT/HCPCS: 76818

== ENCOUNTER 2023-04-08 07:15 | Outpatient (OUT) | payer OTHER, SELFPAY ==
[2023-04-08 16:02] VITALS: BP 119/73; PULSE 85
== END 2023-04-08 16:15 | disposition home or self-care (01) ==
LOC: FBCO 07:15 → FBC 15:26
PROVIDERS: Visit Provider Obstetrics & Gynecology
DX: O26.843 Uterine size-date discrepancy, third trimester (principal); Z3A.00 Weeks of gestation of pregnancy not specified
CPT/HCPCS: 59025

== ENCOUNTER 2023-04-11 04:48 | Inpatient (IN) | payer OTHER, SELFPAY ==
[2023-04-11] VITALS (45 sets, daily range): BP systolic 120–201; BP diastolic 65–112; PULSE 82–151; RESP 16–24; TEMP 36.4–37.2
[2023-04-11] MEDS: 0.9 % SODIUM CHLORIDE 1,000 ML 125 ML IV (05:57)
[2023-04-11] MEDS: OXYTOCIN/0.9 % SODIUM CHLORIDE 10 UNITS/500 ML PLAST..BAG 6 UNIT IV (05:57)
[2023-04-11 05:58] LABS: Hematocrit 34.7 % (36.0-48.0); Hemoglobin 11.4 g/dL (12.0-16.0); Mean Corpuscular HGB Conc 32.9 g/dL (29.9-35.2); Mean Corpuscular Hemoglobin 28.3 pg (26.7-34.0); Mean Corpuscular Volume 86.1 fL (81.0-99.0); Mean Platelet Volume 10.8 fL (9.5-13.5); Platelet Count 304 10^3/uL (150-450); Red Blood Count 4.03 10^6/uL (4.20-5.40); Red Cell Distribution Width 13.2 % (11.0-15.0)
[2023-04-11] MEDS: AMPICILLIN SODIUM 2,000 MG in 0.9 % SODIUM CHLORIDE 100 ML 200 MG IV (05:59)
[2023-04-11 06:12] LABS: Amphetamine Screen Urine NEGATIVE (NEGATIVE); Barbiturates Screen Urine NEGATIVE (NEGATIVE); Benzodiazepines Screen Urine NEGATIVE (NEGATIVE); Buprenorphine Screen Urine NEGATIVE (NEGATIVE); Cannabinoid Screen Urine NEGATIVE (NEGATIVE); Cocaine Screen Urine NEGATIVE (NEGATIVE); Methadone Screen Urine NEGATIVE (NEGATIVE); Methamphetamines Screen Urine NEGATIVE (NEGATIVE); Opiate Screen Urine NEGATIVE (NEGATIVE); Oxycodone Screen Urine NEGATIVE (NEGATIVE); Phencyclidine Screen Urine NEGATIVE (NEGATIVE); Tricyclic Antidepressant Urine NEGATIVE (NEGATIVE)
[2023-04-11] MEDS: LABETALOL HCL 200 MG TABLET PO ×3 (07:21→21:52)
[2023-04-11] MEDS: AMPICILLIN SODIUM 1,000 MG in 0.9 % SODIUM CHLORIDE 50 ML 100 MG IV (11:28)
[2023-04-11] MEDS: 0.9 % SODIUM CHLORIDE 1,000 ML 1000 ML IV (12:49)
[2023-04-11] MEDS: OXYTOCIN/0.9 % SODIUM CHLORIDE 20 UNITS/1,000 ML PLAST..BAG 125 UNIT IV (14:51)
[2023-04-11] MEDS: LIDOCAINE HCL 1% 200 MG/20 ML MDV INJ (14:52)
--- NOTE | 2023-04-11 15:04 | PM.OBPRCVD ---
Procedure Intrapartal events: None Induction method: per pitocin protocol Delivery augmentation: rupture of membranes and pitocin Delivery monitor: external FHT and external uterine Route of delivery: Laceration description: periurethral - 1st degree Delivery repair: Vicryl Estimated blood loss (mL): 350 Anesthesia type: Epidural Disposition: PACU Gender: male presentation: vertex Placental delivery description: Spontaneous cord description: 3 Vessels
[2023-04-11] MEDS: IBUPROFEN 400 MG TABLET 800 MG PO (18:45)
[2023-04-11] MEDS: BENZOCAINE/MENTHOL 85 GRAM SPRAY BOTTLE 1 APPLIC TOPICAL (18:46)
[2023-04-12 00:10] VITALS: BP 145/84; PULSE 100
[2023-04-12 00:15] VITALS: RESP 18
[2023-04-12] MEDS: OMEPRAZOLE 20 MG CAPSULE.DR PO ×2 (00:30→15:50)
[2023-04-12 07:02] LABS: Basophils Absolute Auto 0.1 10^3/uL (0.0-0.1); Basophils Percent Auto 0.5 % (0.2-2.0); Eosinophils Absolute Auto 0.2 10^3/uL (0.0-0.7); Eosinophils Percent Auto 1.2 % (0.9-7.0); Hematocrit 32.1 % (36.0-48.0); Hemoglobin 10.2 g/dL (12.0-16.0); Immature Granulocytes Abs Auto 0.15 10^3/uL (0.00-0.03); Immature Granulocytes Pct Auto 1.1 % (0.0-0.5); Lymphocytes Absolute Auto 3.8 10^3/uL (1.2-3.8); Lymphocytes Percent Auto 28.5 % (20.5-60.0); Mean Corpuscular HGB Conc 31.8 g/dL (29.9-35.2); Mean Corpuscular Hemoglobin 27.4 pg (26.7-34.0); Mean Corpuscular Volume 86.3 fL (81.0-99.0); Mean Platelet Volume 9.6 fL (9.5-13.5); Monocytes Absolute Auto 0.9 10^3/uL (0.3-0.8); Monocytes Percent Auto 6.6 % (1.7-12.0); Neutrophils Absolute Auto 8.3 10^3/uL (1.4-6.5); Neutrophils Percent Auto 62.1 % (43.0-75.0); Platelet Count 279 10^3/uL (150-450); Red Blood Count 3.72 10^6/uL (4.20-5.40); Red Cell Distribution Width 13.2 % (11.0-15.0); White Blood Count 13.4 10^3/uL (4.0-11.0)
[2023-04-12] MEDS: LABETALOL HCL 200 MG TABLET PO ×3 (07:16→21:49)
--- NOTE | 2023-04-12 07:34 | W.PC.ACHO ---
Registration Status: ADM IN Primary Language: Tunisian Preferred Language: Tunisian Active Medications Generic Name Dose Route Start Last Admin Trade Name Freq PRN Reason Stop Dose Admin Acetaminophen 650 mg 04/11/23 15:01 Acetaminophen 325 Mg Tablet PO Q6H PRN Mild Pain Al Hydroxide/Mg Hydroxide 2,400 mg 04/11/23 15:01 Magnesium Hydroxide 2,400 Mg/10 Ml Oral.Susp PO Q6H PRN Dyspepsia Benzocaine/Menthol 1 applic 04/11/23 15:01 04/11/23 18:46 Benzocaine/Menthol 85 Gram Ebony Bottle TOPICAL 1 applic Q2H PRN Administration Pain Carboprost Tromethamine 250 mcg 04/11/23 04:59 Carboprost Tromethamine 250 Mcg/Ml 1 Ml Vial IM 04/13/23 05:00 Q15M PRN Bleeding Diphenhydramine HCl 25 mg 04/11/23 13:08 Diphenhydramine Hcl 50 Mg/Ml (1ml) Vial IV 04/12/23 13:08 Q6H PRN Itching Diphtheria/Pertussis/Tetanus Vacc 0.5 ml 04/13/23 09:00 Adacel Diph,Pertuss(Acell),Tet Vac/Pf 0.5 Ml Adult Syringe IM 04/13/23 09:01 .ONCE ONE Docusate Sodium 100 mg 04/12/23 09:00 Docusate Sodium 100 Mg Capsule PO BID ADARSH Ephedrine Sulfate 5 mg 04/11/23 13:08 Ephedrine Sulfate 50 Mg/Ml Vial IV 04/12/23 13:08 Q5M PRN Blood Pressure - Low Sodium Chloride 1,000 mls @ 125 mls/hr 04/11/23 05:00 04/11/23 05:57 Sodium Chloride 0.9% 1,000 Ml IV 125 mls/hr .Q8H ADARSH Administration Oxytocin/Sodium Chloride 10 units in 500 mls @ 6 mls/hr 04/11/23 05:00 04/11/23 12:30 Pitocin 10 Unit/500 Ml-Ns IV 14 milliunit/min CONT ADARSH 42 mls/hr Infusion Protocol 2 MILLIUNIT/MIN Ampicillin 1,000 mg/ Sodium 50 mls @ 100 mls/hr 04/11/23 10:00 04/11/23 11:28 Chloride IV 100 mls/hr Q4H ADARSH Administration Ropivacaine/Sodium Chloride 400 mg in 200 mls @ 6 mls/hr 04/11/23 08:15 Naropin 0.2% 400 Mg/200 Ml Bag EPIDURAL Q24H [facility] Ibuprofen 800 mg 04/11/23 16:00 04/12/23 07:12 Ibuprofen 400 Mg Tablet PO Not Given Q8H [facility] Labetalol HCl 200 mg 04/11/23 07:30 04/12/23 07:16 Labetalol Hcl 200 Mg Tablet PO 200 mg TID ADARSH Administration Lidocaine 5 ml 04/11/23 04:59 Lidocaine Viscous 2% 15 Ml Solution TOPICAL ONCE PRN Pain Lidocaine 1 ml 04/11/23 04:59 04/11/23 14:52 Lidocaine Hcl 1% 200 Mg/20 Ml Mdv INJ 1 ml ONCE PRN Administration Pain Lidocaine 5 ml 04/11/23 13:08 Lidocaine Hcl 2% Pf 100 Mg/5 Ml Vial INJ 04/12/23 13:08 Q1H PRN Pain Measles/Mumps/Rubella Vaccine Live 0.5 ml 04/13/23 09:00 Measles,Mumps,Rubella Vacc/Pf 0.5 Ml Vial SQ 04/13/23 09:01 .ONCE ONE Methylergonovine Maleate 0.2 mg 04/11/23 04:59 Methylergonovine Maleate 0.2 Mg/Ml Ampule IM 04/13/23 05:00 ONCE PRN Uterine Contractility/Contract Methylergonovine Maleate 0.2 mg 04/11/23 04:59 Methylergonovine Maleate 0.2 Mg Tablet PO 04/13/23 05:00 Q4H PRN Uterine Contractility/Contract Misoprostol 600 mcg 04/11/23 04:59 Misoprostol 100 Mcg Tablet PO 04/13/23 05:00 ONCE PRN Uterine Bleeding Misoprostol 800 mcg 04/11/23 04:59 Misoprostol 100 Mcg Tablet SL 04/13/23 05:00 ONCE PRN Uterine Bleeding Misoprostol 1,000 mcg 04/11/23 04:59 Misoprostol 100 Mcg Tablet KS 04/13/23 05:00 ONCE PRN Uterine Bleeding Omeprazole 20 mg 04/12/23 00:15 04/12/23 00:30 Omeprazole 20 Mg Capsule.Dr PO 20 mg QD ADARSH Administration Ondansetron HCl 4 mg 04/11/23 04:59 Ondansetron Pf 4 Mg/2 Ml Vial IV Q6H PRN Nausea And Vomiting Ondansetron HCl 4 mg 04/11/23 04:59 Ondansetron 4 Mg Rapdis Tablet SL Q6H PRN Nausea And Vomiting Oxytocin 10 unit 04/11/23 04:59 Oxytocin 10 Unit/Ml Vial IM 04/13/23 05:00 ONCE PRN Bleeding Senna 17.2 mg 04/11/23 20:00 Sennosides 8.6 Mg Tablet PO QHS PRN Constipation Simethicone 80 mg 04/11/23 15:01 Simethicone 80 Mg Tab.Chew PO QID PRN Abdominal Distention Temazepam 15 mg 04/11/23 20:00 Temazepam 15 Mg Capsule PO QHS PRN Sleep Witch Toña/Glycerin 1 pad 04/11/23 15:01 Glycerin/Witch Toña Pads TOPICAL Q2H PRN Pain Diet Category Date Time Status Regular Consistency Diet Diet 04/11/23 15:02 Active Respiratory Oxygen Delivery Method Room Air Oxygen Delivery Method Room Air Oxygen Delivery Method Room Air Cardiology Heart Sounds Strong,Regular Heart Sounds Strong,Regular Renal Bladder Pattern Continent Bladder Pattern Continent
--- NOTE | 2023-04-12 08:01 | PM.OBPRCVD ---
Procedure events: Labor Induction Intrapartal events: None Laceration description: periurethral - 1st degree Estimated blood loss (mL): 350 Anesthesia type: Epidural Infant Delivery date: 04/11/23 Gender: male presentation: vertex Placental delivery description: Spontaneous cord description: 3 Vessels Labor State Duration Total Length of Latency: 6 hours and 51 minutes
--- NOTE | 2023-04-12 08:02 | P.OBPN_ITS ---
OB - PN: Subj Subjective Patient comments: pain well controlled and other (c/o slight dizziness with sitting up in bed and when she ambulated to the bathroom. BP ok, and Hgb is 10.2, we did discuss to leave the saline lock in for a little while in case we needed some IV fluids, PVU and agrees she is also on labetalol ) [place] status: doing well [place] feeding status: exclusively bottle feeding Exam Constitutional Vital Signs, click to edit/add: Last Vital Signs Temp 98.9 F 04/11/23 15:10 Pulse 100 H 04/12/23 00:10 Resp 18 04/12/23 00:15 BP 145/84 H 04/12/23 00:10 O2 Del Method Room Air 04/12/23 00:15 Documenting provider has reviewed patient's vital signs: yes Common normals: no apparent distress HENMT Common normals: normocephalic Eye Common normals: EOMs intact bilaterally Neck & C-Spine Common normals: full ROM General: normal visual inspection Lymph Lymphatic: no lymphadenopathy noted Chest Common normals: inspection of chest normal Respiratory Common normals: normal respiratory effort and clear to auscultation bilaterally Cardio Common normals: regular rate and regular rhythm GI Common normals: Normal to inspection, nondistended, normoactive bowel sounds present Auscultation: normoactive bowel sounds Common normals: no CVA tenderness Back & Pelvis Common normals: no CVA tenderness Extremity Common normals: normal to inspection and full ROM Neuro Common normals: oriented x3 Psych Common normals: mental status grossly normal, thought process normal and cooperative Results Labs Labs: Short CBC 04/12/23 Range/Units 06:36 WBC 13.4 H (4.0-11.0) 10^3/uL Hgb 10.2 L (12.0-16.0) g/dL Hct 32.1 L (36.0-48.0) % Plt Count 279 (150-450) 10^3/uL OB - PN: A/P Plan - Vaginal Delivery day: 1 Plan: routine care Time Spent with Patient Time: Total time spent is greater than 50% in coordination of care (as documented) at patient's floor/unit and/or counseling patient: Total time spent with greater than 50% in coordination of care (as documented) at patient's floor/unit and/or counseling patient: less than 15 minutes
[2023-04-12 09:16] VITALS: BP 134/79; PULSE 92; RESP 16; TEMP 36.8
[2023-04-12] MEDS: DOCUSATE SODIUM 100 MG CAPSULE PO ×2 (15:50→21:49)
[2023-04-12 16:11] VITALS: BP 143/90; PULSE 85
[2023-04-12 16:15] VITALS: RESP 16; TEMP 36.7
[2023-04-12] MEDS: IBUPROFEN 400 MG TABLET 800 MG PO (17:32)
[2023-04-12 21:49] VITALS: BP 145/85; PULSE 93
[2023-04-13 00:45] VITALS: RESP 16
[2023-04-13 00:51] VITALS: TEMP 36.6
[2023-04-13 00:54] VITALS: BP 135/81; PULSE 85
[2023-04-13] MEDS: IBUPROFEN 400 MG TABLET 800 MG PO (04:51)
[2023-04-13 06:49] VITALS: BP 145/76; PULSE 98
[2023-04-13] MEDS: LABETALOL HCL 200 MG TABLET PO (06:49)
--- NOTE | 2023-04-13 07:24 | W.PC.ACHO ---
Registration Status: ADM IN Primary Language: Hong Konger Preferred Language: [place] Konger report given to Evelio Little RN. Active Medications Generic Name Dose Route Start Last Admin Trade Name Freq PRN Reason Stop Dose Admin Acetaminophen 650 mg 04/11/23 15:01 Acetaminophen 325 Mg Tablet PO Q6H PRN Mild Pain Al Hydroxide/Mg Hydroxide 2,400 mg 04/11/23 15:01 Magnesium Hydroxide 2,400 Mg/10 Ml Oral.Susp PO Q6H PRN Dyspepsia Benzocaine/Menthol 1 applic 04/11/23 15:01 04/11/23 18:46 Benzocaine/Menthol 85 Gram Roundup Bottle TOPICAL 1 applic Q2H PRN Administration Pain Diphtheria/Pertussis/Tetanus Vacc 0.5 ml 04/13/23 09:00 Adacel Diph,Pertuss(Acell),Tet Vac/Pf 0.5 Ml Adult Syringe IM 04/13/23 09:01 .ONCE ONE Docusate Sodium 100 mg 04/12/23 09:00 04/12/23 21:49 Docusate Sodium 100 Mg Capsule PO 100 mg BID ADARSH Administration Sodium Chloride 1,000 mls @ 125 mls/hr 04/11/23 05:00 04/11/23 05:57 Sodium Chloride 0.9% 1,000 Ml IV 125 mls/hr .Q8H ADARSH Administration Ibuprofen 800 mg 04/11/23 16:00 04/13/23 04:51 Ibuprofen 400 Mg Tablet PO 800 mg Q8H ADARSH Administration Labetalol HCl 200 mg 04/11/23 07:30 04/13/23 06:49 Labetalol Hcl 200 Mg Tablet PO 200 mg TID ADARSH Administration Measles/Mumps/Rubella Vaccine Live 0.5 ml 04/13/23 09:00 Measles,Mumps,Rubella Vacc/Pf 0.5 Ml Vial SQ 04/13/23 09:01 .ONCE ONE Omeprazole 20 mg 04/12/23 00:15 04/12/23 15:50 Omeprazole 20 Mg Capsule.Dr PO 20 mg QD ADARSH Administration Ondansetron HCl 4 mg 04/11/23 04:59 Ondansetron Pf 4 Mg/2 Ml Vial IV Q6H PRN Nausea And Vomiting Ondansetron HCl 4 mg 04/11/23 04:59 Ondansetron 4 Mg Rapdis Tablet SL Q6H PRN Nausea And Vomiting Senna 17.2 mg 04/11/23 20:00 Sennosides 8.6 Mg Tablet PO QHS PRN Constipation Simethicone 80 mg 04/11/23 15:01 Simethicone 80 Mg Tab.Chew PO QID PRN Abdominal Distention Temazepam 15 mg 04/11/23 20:00 Temazepam 15 Mg Capsule PO QHS PRN Sleep Witch Toña/Glycerin 1 pad 04/11/23 15:01 Glycerin/Witch Toña Pads TOPICAL Q2H PRN Pain Respiratory Oxygen Delivery Method Room Air Oxygen Delivery Method Room Air Bowels Date of Last Bowel Movement 04/11/23 Date of Last Bowel Movement 04/11/23 Renal Bladder Pattern Continent
[2023-04-13 08:18] VITALS: BP 147/80; PULSE 90
[2023-04-13 08:19] VITALS: RESP 16; TEMP 36.9
[2023-04-13] MEDS: DOCUSATE SODIUM 100 MG CAPSULE PO (08:23)
[2023-04-13] MEDS: OMEPRAZOLE 20 MG CAPSULE.DR PO (08:23)
--- NOTE | 2023-04-13 09:19 | P.OBPN_ITS ---
OB - PN: Subj Subjective Patient comments: no complaints and pain well controlled [place] status: doing well Exam Constitutional Vital Signs, click to edit/add: Last Vital Signs Temp 98.5 F 04/13/23 08:19 Pulse 90 04/13/23 08:18 Resp 16 04/13/23 08:19 BP 147/80 H 04/13/23 08:18 O2 Del Method Room Air 04/13/23 00:45 Documenting provider has reviewed patient's vital signs: yes Common normals: no apparent distress Respiratory Common normals: normal respiratory effort and clear to auscultation bilaterally Cardio Common normals: regular rate and regular rhythm GI Common normals: Normal to inspection, nondistended, normoactive bowel sounds present Extremity Common normals: no calf tenderness OB - PN: A/P Plan - Vaginal Delivery day: 1 Plan: routine care, discharge home and follow up 6 weeks Time Spent with Patient Time: Total time spent is greater than 50% in coordination of care (as documented) at patient's floor/unit and/or counseling patient: Total time spent with greater than 50% in coordination of care (as documented) at patient's floor/unit and/or counseling patient: less than 15 minutes
[2023-04-15 22:07] LABS: Neisseria gonorrhoeae, NAA Negative (Negative)
== END 2023-04-13 12:05 | disposition home or self-care (01) | DRG 560 ==
PROVIDERS: Admitting Provider Obstetrics & Gynecology; Visit Provider Obstetrics & Gynecology
DX: O10.92 Unspecified pre-existing hypertension complicating childbirth (principal); O71.82 Other specified trauma to perineum and vulva; O26.843 Uterine size-date discrepancy, third trimester; Z3A.37 37 weeks gestation of pregnancy; Z37.0 Single live birth; O99.824 Streptococcus B carrier state complicating childbirth
CPT/HCPCS: 36415; 59025; 59050; 59410; 80307; 85025; 85027; 86850; 86900; 86901; 87491; 87591; 96374; 96375; 96376

== ENCOUNTER 2023-04-15 11:30 | Emergency (ER) | payer OTHER, SELFPAY ==
[2023-04-15 11:33] VITALS: BP 164/86; PULSE 89; RESP 16; TEMP 36.8; O2SAT 98; BMI 37.0
--- NOTE | 2023-04-15 12:02 | ED_ITS ---
HPI - General Adult General Chief complaint: Upper Respiratory Infection Stated complaint: SOAR THROAT Time Seen by Provider: 04/15/23 12:02 Source: patient Mode of arrival: walk-in History of Present Illness HPI narrative: patient's here complaining with sore throat. She just had a baby, spontaneous vaginal delivery on Tuesday of this week. She went home on Tuesday. She started developing a little bit of a sore throat. She does not have a runny nose cough shortness of breath or any other respiratory type symptoms. She was just fearful that she might be to give the baby germs. She says she was given one dose of an antibiotic around the time delivery because she was positive for strep on her vaginal smear. She otherwise feels perfectly fine has not been sick febrile. No nausea or vomiting. She is not currently on any antibiotics. She is breast- feeding the baby. The baby was born full-term. Related Data Home Medications Medication Instructions Recorded Confirmed acetaminophen 500 mg tablet 1,000 mg PO Q6H PRN pain 04/08/23 04/11/23 (Tylenol Extra Strength) aspirin 81 mg capsule 81 mg PO DAILY 04/08/23 04/11/23 omeprazole 20 mg tablet,delayed 20 mg PO DAILY 04/08/23 04/11/23 release ondansetron HCl 4 mg tablet 4 mg PO Q6H 04/08/23 04/11/23 Previous Rx's Medication Instructions Recorded docusate sodium 100 mg capsule 100 mg PO BID #60 caps 02/17/23 (Colace) labetalol 200 mg tablet 200 mg PO TID 30 days #90 tabs 03/23/23 Allergies Allergy/AdvReac Type Severity Reaction Status Date / Time No Known Drug Allergies Allergy Verified 02/16/23 20:54 Exam Narrative Exam Narrative: patient awake alert pleasant appears in no distress voice is normal phonation is normal deglutition is normal. HEENT examination shows the uvula to have very very slight erythema and edema. There is no swelling of the floor the mouth the tongue uvula is otherwise unremarkable. There is no purulent drainage or discharge and there is no exudate in the pharyngeal area. Her trachea is nonten filemon. There is no cervical adenitis. Her voice is normal. Skin integument show no rash or exanthem. Otherwise she appears healthy. Constitutional Vital Signs, click to edit/add: Last Vital Signs Temp 98.3 F 04/15/23 11:33 Pulse 89 04/15/23 11:33 Resp 16 04/15/23 11:33 BP 164/86 H 04/15/23 11:33 Pulse Ox 98 04/15/23 11:33 O2 Del Method Room Air 04/15/23 11:40 Course Vital Signs Vital signs: Vital Signs Temperature 98.3 F 04/15/23 11:33 Pulse Rate 89 04/15/23 11:33 Respiratory Rate 16 04/15/23 11:33 Blood Pressure 164/86 H 04/15/23 11:33 Pulse Oximetry 98 04/15/23 11:33 Oxygen Delivery Method Room Air 04/15/23 11:33 Temperature 98.3 F 04/15/23 11:33 Pulse Rate 89 04/15/23 11:33 Respiratory Rate 16 04/15/23 11:33 Blood Pressure 164/86 H 04/15/23 11:33 Pulse Oximetry 98 04/15/23 11:33 Oxygen Delivery Method Room Air 04/15/23 11:40 Medical Decision Making [facility] Narrative Medical decision making narrative: rapid strep testing will be done but since she was positive at time of delivery and she still has a sore throat I think it be prudent to start her on an antibiotic since she has this baby. She'll also be limited to Medrol Adams. Discharge Plan Discharge Chief Complaint: Upper Respiratory Infection Clinical Impression: Pharyngitis Patient Disposition: Home, Self-Care Time of Disposition Decision: 12:04 Prescriptions / Home Meds: No Action labetalol 200 mg tablet 200 mg PO TID 30 Days Qty: 90 0RF ondansetron HCl 4 mg tablet 4 mg PO Q6H omeprazole 20 mg tablet,delayed release (DR/EC) 20 mg PO DAILY aspirin 81 mg capsule 81 mg PO DAILY acetaminophen [Tylenol Extra Strength] 500 mg tablet 1,000 mg PO Q6H PRN (Reason: pain) docusate sodium [Colace] 100 mg capsule 100 mg PO BID Qty: 60 0RF Additional Instructions: Medrol Adams/amoxicillin Stand Alone Forms: Portal Instructions Referrals: Physician,Non-Staff, MD [Primary Care Provider] - 1 week
[2023-04-15 12:25] LABS: Internal Control Within Normal Limits; Strep A Antigen Screen Negative
== END 2023-04-15 12:30 | disposition home or self-care (01) ==
PROVIDERS: Emergency Provider Emergency Medicine Emergency Medical Services
DX: O90.89 Other complications of the puerperium, not elsewhere classified (principal); J02.9 Acute pharyngitis, unspecified; Z79.899 Other long term (current) drug therapy; Z79.82 Long term (current) use of aspirin
CPT/HCPCS: 87070; 87880; 99283

== ENCOUNTER 2023-05-03 08:59 | Outpatient (OUT) | payer OTHER, SELFPAY ==
--- NOTE | 2023-05-03 16:31 | PC.NURSE ---
Elizabeth arrives alone for support. States baby has reflux and is home with dad. is bottle fed formula currently,but mom wants to try pumping for supply as she noted 1-2 drops on nipple after her shower. Spoke with LC last week for instructions on pump use, intervals and stimulation for supply. Today arrives stating Nothing is coming out This pump isn't working or I don't know how to use it . Admits to pumping 3-5 times daily, single pumping for 10 minutes at a time. History noted that she has never been able to produce milk, no fullness, no breast changes, no engorgement, no leaking with any or after any delivery. Became excited as she noted 1-2 drops on nipple after shower last week. Pt begins to share feeling of inadequate and bad mom as she does not produce milk, Shared feeling in regards to social media pressure to breastfeed, pump and store freezer full of breast milk. Discussed the reality of life and that social media does not always support mother's and no couplet is the same. Is aware that social media is fake to a certain extent, but feels like she needs to try. Pt admits to high anxiety, not currently taking medication Celexa for anxiety as was afraid it could interfere with production or make her feel like a Zombie Discussed importance of healthy mom physically and mentally and importance of follow up with Dr when deciding to not take medication. Is aware and has appointment with Dr Martínez later in the week for blood pressure check. Will discuss fears and concerns at that time. Pt states feels safe, no thoughts of harm to self or to others. No suicidal thought or actions. Shown how to use Spectra pump , fitted at 20mm flange size and currently has size 20 to use. Given Exclusive pumping schedule to model own pumping from. Discussed power pumping at least once per day before bed. States That is a lot of pumping! Reviewed supply and demand. Verbalized full understanding. Pt denies preference for direct as it's a boy and that feels weird Admits to trauma in the past and unable to place male to breast for comfort suckling. Encouraged and supported, plans to return when has tried new plan for 2 weeks. Will stay in contact with via phone as needed. Leaves ambulatory with questions answered and feeling supported.
== END 2023-05-03 11:15 | disposition home or self-care (01) ==
LOC: FBCO 09:01
PROVIDERS: Visit Provider Obstetrics & Gynecology
DX: Z39.1 Encounter for care and examination of lactating mother (principal)

== ENCOUNTER 2024-01-03 18:51 | Outpatient (REF) | payer OTHER, SELFPAY ==
--- OUTSIDE RECORDS SUMMARY | 2024-01-03 18:56 | XMS_ITS | CCD ---
Author Organization [facility] Care Team Providers Care Melter Operator Name Role Phone ALVIN MARTÍNEZ Unavailable Unavailable Tanya, Alvin Kearns Unavailable Unavailable Tanya, Alvin Kearns Unavailable Unavailable Cherri Hurley Unavailable TANYA ., DR ESQUIVEL Admitting Unavailable TANYA ., DR ESQUIVEL Attending Unavailable REQUEST, DR GREENBERG LISTED Primary Care Unavaila ble WEST, DR ADRIANA Aguirre Consulting Unavailable TANYA ., DR ESQUIVEL Consulting Unavailable REQUEST, DR GREENBERG LISTED Consulting Unavaila ble TANYA ., DR ESQUIVEL Admitting Unavailable TANYA ., DR ESQUIVEL Attending Unavailable REQUEST, DR GREENBERG LISTED Primary Care Unavaila ble TANYA ., DR ESQUIVEL Consulting Unavailable NICOLE LYNCH Attending Unavailable TANYA, ALVIN Attending Unavailable TANYA, ALVIN Attending Unavailable TANYA, ALVIN Attending Unavailable SYEDNICOLE Attending Unavailable TANYA, ALVIN Attending Unavailable Medications Current Medications Medication Drug [...] Results Test Name Value Interpretation Reference Range Facility HEP B SURFACE ANTIGEN SCREEN on 10-03-2022 HBsAg Screen Negative Normal Negative [facility] Comment on above: Performed By: #### H BSANS #### [facility] [address] [address] [address] Zeferino Evans HEPATITIS C VIRUS AB W/ REFL EX QUANTon 10-03-2022 HCV AB Non-Reactive Normal Non Reactive [facility] Comment on above: Performed By: #### H CVPCRR #### [facility] [address] [address] [address] Zeferino Evans Interpretation: Comment Normal [facility] Comment on above: Result Comment: Not infected with HCV unless early or acute infection is suspected (which may be delayed in an immunocompromised individual), or other evidence exists to indicate HCV infection. Performed By: #### H CVPCRR #### [facility] [address] [address] [address] Zeferino Evans HIV 1 AND 2 WITH REFLEXon HIV Screen 4th Generation wRfx Non-Reactive Normal Non Reactive [facility] Comment on above: Result Comment: HIV Negative HIV-1/HIV-2 antibodies and HIV-1 p24 antigen were NOT detected. There is no laboratory evidence of HIV infection. Performed By: #### H IV12 #### [facility] [address] [address] [address] Zeferino Evans RPR QUANTon 10-03-2022 Rapid Plasma Reagin, Quant Non-Reactive Normal NonRea<1:1 [facility] Comment on above: Result Comment: Plea se Note: This test does not meet current guidelines for screening and diagnosis of syphilis. This test is intended for following treatment response in patients being treated for syphilis infection. To screen for syphilis infection, a reflex cascade that includes both RPR and a treponema-specific assay should be utilized, such as Treponema pallidum (Syphilis) Screening [place] (705388) or Rapid Plasma Reagin (RPR) Test With Reflex to Quantitative RPR and Confirmatory Treponema pallidum Antibodies (396057). Performed By: #### R PRQ #### [facility] [address] [place] [address] Dr. Zeferino Evans RUBELLA AB IGGon 10-03-2022 Rubella Antibodies, IgG 6.38 index Normal Immune >0.99 [facility] Comment on above: Result Comment: Non- immune <0.90 Equivocal 0.90 - 0.99 Immune >0.99 Performed By: #### R UBIGG #### [facility] [address] [place] [address] Dr. Zeferino Evans BOX TEST SENT OUTon 10-03-19 23 SENT TO REF LAB 10/02/[address] [facility] Comment on above: Result Comment: Prev iously reported as: 10/02/2025 On 10/02/2022 11:17 By LRP Performed By: #### U RCX #### [facility] [address] [place] [address] Dr. Zeferino Evans CBC AUTO DIFFon 10-02-2022 BASO # 0.0 103/ul Normal 0.0-0.1 [facility] Comment on above: Performed By: #### C BC #### [facility] [address] [place] [address] Dr. Zeferino Evans Basophils/100 WBC (Bld) 0.3 % Normal 0.2-2.0 [facility] Comment on above: Performed By: #### C BC #### [facility] [address] [place] [address] Dr. Zeferino Evans EO # 0.1 103/ul Normal 0.0-0.7 [facility] Comment on above: Performed By: #### C BC #### [facility] [address] [place] [address] Dr. Zeferino Evans Eosinophils/100 WBC (Bld) 1.0 % Normal 0.9-7.0 [facility] Comment on above: Performed By: #### C BC #### [facility] [address] [place] [address] Dr. Zeferino Evans Erythrocyte distribution width (RBC) [Ratio] 12.7 % Normal 11.0-15.0 [facility] Comment on above: Performed By: #### C BC #### [facility] [address] [place] [address] Dr. Zeferino Evans Hematocrit (Bld) [Volume fraction] 42.7 % Normal 36.0-48.0 [facility] Comment on above: Performed By: #### C BC #### [facility] [address] [place] [address] Dr. Zeferino Evans Hemoglobin (Bld) [Mass/Vol] 13.9 g/dL Normal 12.0-16.0 [facility] Comment on above: Performed By: #### C BC #### [facility] [address] [place] [address] Dr. Zeferino Evans IG # 0.03 10e3/ul Normal 0.00-0.03 [facility] Comment on above: Performed By: #### C BC #### [facility] [address] [place] [address] Dr. Zeferino Evans IG % 0.3 % Normal 0.0-0.5 [facility] Comment on above: Performed By: #### C BC #### [facility] [address] [place] [address] Dr. Zeferino Evans LYMPH # 2.9 103/ul Normal 1.2-3.8 [facility] Comment on above: Performed By: #### C BC #### [facility] [address] [place] [address] Dr. Zeferino Evans Lymphocytes/100 WBC (Bld) 32.3 % Normal 20.5-60.0 [facility] Comment on above: Performed By: #### C BC #### [facility] [address] [place] [address] Dr. Zeferino Evans MANUAL DIFF REQ NO Normal [facility] Comment on above: Performed By: #### C BC #### [facility] [address] [place] [address] Dr. Zeferino Evans MCH (RBC) [Entitic mass] 28.9 pg Normal 26.7-34.0 [facility] Comment on above: Performed By: #### C BC #### [facility] [address] [address] [address] Zeferino Evans MCHC (RBC) [Mass/Vol] 32.6 g/dL Normal 29.9-35.2 [facility] Comment on above: Performed By: #### C BC #### [facility] [address] [address] [address] Zeferino Evans MCV (RBC) [Entitic vol] 88.8 fL Normal 81.0-99.0 [facility] Comment on above: Performed By: #### C BC #### [facility] [address] [place] [address] Dr. Zeferino Evans MONO # 0.5 103/ul Normal 0.3-0.8 [facility] Comment on above: Performed By: #### C BC #### [facility] [address] [place] [address] Dr. Zeferino Evans Monocytes/100 WBC (Bld) 5.1 % Normal 1.7-12.0 [facility] Comment on above: Performed By: #### C BC #### [facility] [address] [place] [address] Dr. Zeferino Evans NEUT # 5.5 103/ul Normal 1.4-6.5 [facility] Comment on above: Performed By: #### C BC #### [facility] [address] [place] [address] Dr. Zeferino Evans Neutrophils/100 WBC (Bld) 61.0 % Normal 43.0-75.0 [facility] Comment on above: Performed By: #### C BC #### [facility] [address] [place] [address] Dr. Zeferino Eavns Platelet mean volume (Bld) [Entitic vol] 8.8 fL Critically low 9.5-13.5 [facility] Comment on above: Performed By: #### C BC #### [facility] [address] [place] [address] Dr. Zeferino Evans PLT 332 103/ul Normal 150-450 [facility] Comment on above: Performed By: #### C BC #### [facility] [address] [address] [address] Zeferino Evasn RBC 4.81 106/ul Normal 4.20-5.40 [facility] Comment on above: Performed By: #### C BC #### [facility] [address] [place] [address] Dr. Zeferino Evans WBC 9.1 103/ul Normal 4.0-11.0 [facility] Comment on above: Performed By: #### C BC #### [facility] [address] [place] [address] Dr. Zeferino Evans CULTURE URINEon 10-02-2022 CULTURE URINE Culture Observations : HEAVY GROWTH OF MIXED GENITAL MALICK. NO POTENTIAL PATHOGENS SEEN. Normal [facility] Comment on above: Performed By: #### U RCX #### [facility] [address] [place] [address] Dr. Zeferino Evans GLYCOHEMOGLOBIN A1Con 2022 ADA RECOMMENDATION SEE BELOW Normal [facility] Comment on above: Result Comment: ADA RECOMMENDED LIMIT 4.0 - 6.0 ADA THERAPEUTIC TARGET < 7.0 ACTION SUGGESTED > 7.0 Performed By: #### A 1C #### [facility] [address] [place] [address] Dr. Zeferino Evans Glucose [Mass/Vol] 100 mg/dL Normal [facility] Comment on above: Performed By: #### A 1C #### [facility] [address] [place] [address] Dr. Zeferino Evans HbA1c (Bld) [Mass fraction] 5.1 % Normal 4.5-6.2 [facility] Comment on above: Performed By: #### A 1C #### [facility] [address] [place] [address] Dr. Zeferino Evans TSHon 10-02-2022 TSH 1.283 uIU/mL Normal 0.358-3.740 [facility] Comment on above: Performed By: #### T SH #### [facility] [address] [place] [address] Dr. Zeferino Evans TYPE AND SCREENon 10-02-2022 TYPE AND SCREEN Negative Normal [facility] Comment on above: Performed By: #### T NS #### [facility] [id number] Zeferino Evans US PREG TVon 09-23-2022 [...] ADRIANA ZHANG Date: 2022-09-23 17:41 Normal [facility] U24 Proteinon 12-16-2017 Protein mass conc (24H U) 245 mg/24hr High 28-141 [facility] Comment on above: Performed By: #### 2 [id number], [id number] ####[facility] [address] [place] [address] Albumin/Protein.tota l Elph mass fraction (U) 9.8 mg/dL Invalid Interpretation Code [facility] Comment on above: Result Comment: The reference range and other method performance specifications have not been established for this test; results should be integrated into the clinical context for interpretation. Performed By: #### 2 [id number], [id number] ####[facility] [address] [place] [address] U24 Total Volon 12-16-2017 Hrs Phu 24 hour(s) Invalid Interpretation Code [facility] Comment on above: Order Comment: Order added by Discern Expert Performed By: #### 2 [id number], [id number] ####[facility] [address] [place] [address] Volume unspecified time (U) 2500 mL Invalid Interpretation Code [facility] Comment on above: Order Comment: Order added by Discern Expert Performed By: #### 2 [id number], [id number] ####[facility] [address] [place] [address] U24 Proteinon 12-02-2017 Protein mass conc (24H U) 253 mg/24hr High 28-141 [facility] Comment on above: Performed By: #### 2 [id number], [id number] ####[facility] [address] [place] [address] Albumin/Protein.tota l Elph mass fraction (U) 16.3 mg/dL Invalid Interpretation Code [facility] Comment on above: Result Comment: The reference range and other method performance specifications have not been established for this test; results should be integrated into the clinical context for interpretation. Performed By: #### 2 [id number], [id number] ####[address] [place] [address] U24 Total Volon 12-02-2017 Hrs Phu 24 hour(s) Invalid Interpretation Code [facility] Comment on above: Order Comment: Order added by Discern Expert Performed By: #### 2 [id number], [id number] ####[facility] [address] [facility] [place] [address] Volume unspecified time (U) 1550 mL Invalid Interpretation Code [facility] Comment on above: Order Comment: Order added by Discern Expert Performed By: #### 2 [id number], [id number] ####[facility] [address] [place] [address] U24 Proteinon 10-08-2017 Albumin/Protein.tota l Elph mass fraction (U) 11.0 mg/dL Invalid Interpretation Code [facility] Comment on above: Result Comment: The reference range and other method performance specifications have not been established for this test; results should be integrated into the clinical context for interpretation. Performed By: #### 2 [id number], [id number] ####[facility] [address] [place] [address] Protein mass conc (24H U) 179 mg/24hr High 28-141 [facility] Comment on above: Performed By: #### 2 [id number], [id number] ####[facility] [address] [place] [address] U24 Total Volon 10-08-2017 Hrs Phu 24 hour(s) Invalid Interpretation Code [facility] Comment on above: Order Comment: Order added by Discern Expert Performed By: #### 2 [id number], [id number] ####[facility] [address] [place] [address] Volume unspecified time (U) 1625 mL Invalid Interpretation Code [facility] Comment on above: Order Comment: Order added by Discern Expert Performed By: #### 2 [id number], [id number] ####[facility] [address] [place] [address] Vital Signs Date Time Vital Sign Value Performing Clinician Facility 08-19-2022 16:05-0400 Body height 167.64 cm Cherri Hurley Other [facility] Other 08-19-2022 16:05-0400 Body mass index (BMI) [Ratio] 41.96 kg/m2 Cherri Hurley Other [facility] Other 08-19-2022 16:05-0400 Body temperature 98.2 [degF] Cherri Hurley Other [facility] Other 08-19-2022 16:05-0400 Body weight 117.94 kg Cherri Hurley Other [facility] Other 08-19-2022 16:05-0400 Respiratory rate 18 /min Cherri Hurley Other [facility] Other 08-19-2022 16:05-0400 SaO2% (BldA) [Mass fraction] 98 % Cherri Hurley Other [facility] Other Encounters Encounter Date Encounter Type Care Provider Facility Start: 12-06-2023 End: 12-06-2023 ambulatory ALVIN MARTÍNEZ Not Available Start: 11-08-2023 End: 11-08-2023 ambulatory ALVIN MARTÍNEZ Not Available Start: 05-24-2023 End: 05-24-2023 ambulatory NICOLE LYNCH Not Available Start: 05-05-2023 End: 05-05-2023 ambulatory NICOLE LYNCH Not Available Start: 04-28-2023 End: 04-28-2023 ambulatory ALVIN TANYA Not Available Start: 04-04-2023 End: 04-04-2023 ambulatory ALVIN MARTÍNEZ Not Available Start: 10-02-2022 End: 10-03-[address] ALVIN MARTÍNEZ . Facility: Start: 09-23-2022 End: 09-24-[address] ALVIN MARTÍNEZ . Facility: Start: 08-19-2022 End: 08-19-2022 ambulatory Cherri Hurley Other [facility] Other Start: 08-19-2022 Office outpatient ne w 20 minutes Cherri Hurley [facility] Start: 12-16-2017 End: 12-17-2017 Patient encounter Alvin Martínez [place] [place]: 12-02-2017 End: 12-03-2017 Patient encounter Alvin Martínez [place] Start: 10-08-2017 End: 10-09-2017 Patient encounter ALVIN MARTÍNEZ [place] Payers Date Payer Category Payer Unknown [id number] 2.16.84 [id number] 1986 Unknown [id number] 2.16.84 [id number] 1986 Unknown [id number] 2.16.84 [id number] 1986 Unknown [id number] 2.16.84 [id number] 1986 Unknown [id number] 2.16.840 .[id number] 1986 Unknown [id number] 2.16.840 .[id number] 1986 Unknown [id number] 2.16.840 .[id number] 1986 Unknown [id number] [id number]. [id number] 1959 Unknown [id number] Unknown [id number] 2.1 [id number] Social History Date Type Detail Facility Unknown if ever smoked [facility] Other Sex Assigned At Sex Assigned At Bir th [facility] Other Evaluation note 08-19-2022 Note Date & [...] Tooth abscess home care material was printed [facility] Other History general Narrative - Reported Note Date & Type Note Facility History general Narrative - Reported Type Medical History GERD (gastroesophageal reflux di sease) Medical History Anxiety Medical History PCOS Medical History headache Medical History depression Hospitalization History pneumonia Hospitalization History toxemia with [facility] Other Summary Purpose Family History No Family History Records FoundNo Family History Records FoundNo Family History Records Found Advance Directives No Advanced Directives Records FoundNo Advanced Directives Records FoundNo Advanced Directives Records Found Additional Source Comments INFORMATION SOURCE (unrecogn ized section and content) DATE CREATED AUTHOR 12/17/2017 Sinan WiOffer [facility] DATE CREATED AUTHOR AUTHOR'S ORGANIZ ATION 10/04/2022 [facility] DATE CREATED AUTHOR AUTHOR'S ORGANIZ ATION 12/09/2023 [facility] EPIC REASON FOR VISIT [...] BE BASED ON THE PRIMARY CLINICAL RECORDS. [facility] [email or web address] provides no warranty or guarantee of the accuracy or completeness of information in this document.
== END 2024-01-03 18:52 | disposition home or self-care (01) ==
LOC: LAB 18:51
PROVIDERS: Visit Provider Obstetrics & Gynecology
DX: Z01.419 Encounter for gynecological examination (general) (routine) without abnormal findings (principal)
CPT/HCPCS: 87624; 88175

== ENCOUNTER 2025-01-14 15:12 | Outpatient (REF) | payer OTHER, SELFPAY ==
[2025-01-17 18:10] LABS: Age Gdln ACOG Testing Note (.); IGP, Aptima HPV, rfx 16/18,45 Note (.)
== END 2025-01-14 15:13 | disposition home or self-care (01) ==
LOC: LAB 15:12
PROVIDERS: Visit Provider Obstetrics & Gynecology
DX: Z01.419 Encounter for gynecological examination (general) (routine) without abnormal findings (principal)
CPT/HCPCS: 87624; 88175

== ENCOUNTER 2025-03-25 09:48 | Outpatient (OUT) | payer OTHER, SELFPAY ==
--- OUTSIDE RECORDS SUMMARY | 2025-03-25 09:55 | XMS_ITS | Clinical Summary ---
Author Organization [facility] Address [address] [place] [address] Care Team Providers Care Cement Paver Name Role Phone Tania Roberts FELTON Primary Care Provider + Allergies No known active allergies Medications MedicationSigDispense QuantityRefillsLast FilledStart DateEnd DateStatus phentermine 37.5 MG tablet Take 1 tablet by mouth.01/31/2024ctive omeprazole [address] capsule Take 1 capsule by mouth daily.Active metFORMIN 500 MG tablet 2 tablets daily. PMActive Levonorgestrel 20 MCG/DAY 1 Intra Uterine Device by Intrauterine route./ctive Citalopram 20 MG tablet Take 1 tablet by mouth daily. PMActive acetaminophen 500 MG tablet Take 2 tablets by mouth Every 6 hours as needed.Active Ibuprofen 400 MG tablet Take 1 tablet by mouth every 6 hours as needed for Mild Pain.Active oxyCODONE-acetaminophen 5-325 MG per tablet Indications:Dental cariesTake 1 tablet by mouth every 6 hours as needed for Severe Pain or Pain (breakthrough) for up to 15 doses. 15 tablet 03/12/2024ctive Active Problems No known active problems Social History Tobacco UseTypesPacks/DayYears UsedDateSmoking Tobacco: Every DayCigarettes Smokeless Tobacco: Never Tobacco Cessation:Ready to Q uit: Not Asked; Counseling Given: Not Answered Comments:Vape and cigarettes Alcohol UseStandard Drinks/WeekCommentsYes0 (1 standard drink = 0.6 oz pure alcohol)occasionallyCommentsNoSex and Gender InformationValueDate RecordedSex Assigned at BirthNot on fileLegal UsxRumcyf57/27/2024 12:23 PM EDT Gender IdentityNot on fileSexual OrientationNot on file Last Filed Vital Signs Vital SignReadingTime TakenCommentsBlood Nhtdouri410/9510 11:00 AM EDT Dcagb244103/12/2024 11:00 AM LGKMdutzlrgush30.3 ??C (97.4 ??F)03/12/2024 10:05 AM EDTRespiratory Pshi6927 10:15 AM EDTOxygen Ejwymbckag26%03/12/2024 11:00 AM EDTInhaled Oxygen Concentration--Nldjto972 kg (238 lb)03/12/2024 7:41 AM EDT Typher746.2 cm (5' 7 )03/12/2024 7:41 AM EDTBody Mass Index37.281 7:41 AM EDT Plan of Treatment Health MaintenanceDue DateLast DoneCommentsHEPATITIS C VIRUS ZYVSEWDQD64/18/1987 DGSTSZX90 1986HIV SCREENING EAQTKTKHUU85/18/2002HEP B VACCINE (1 of 3 - 19+ 3-dose series)2005PNEUMOCOCCAL VACCINE SERIES (1 of 2 - PCV)2005TDAP (ADULT)2005CERVICAL CANCER SCREENING ACMOPTLYGI67/18/2008HPV VACCINE (1 - 3-dose SCDM series)2013COVID-19 VACCINE (3 - season)2025 03/21/2021, 01/27/2021INFLUENZA VACCINE (#1)2025 Insurance Care Teams Team MemberRelationshipSpecialtyStart DateEnd Date Tania Roberts CNP [address] [place] [address] PCP - GeneralNurse Practitioner - Nowumz82/16/24
--- OUTSIDE RECORDS SUMMARY | 2025-03-25 09:55 | XMS_ITS | Patient Health Record ---
Author Organization [facility] [place] Address [address] [place] [address] Care Team Providers Care Product Development Scientist Name Role Phone Alejandra Tania Primary Care Provider Allergies No Known Allergies Reason For Referral No Information Medications Medication SIG (Take, Route, Frequency, Duration) Notes Start Date End Date Status Blood Pressure Kit - as directed 4ActiveAdipex-P 37.5 MG1 tablet before breakfast Orally Once a day ActivemetFORMIN HCl 1000 MG1 tablet with a meal Orally Once a dayActive Citalopram Hydrobromide 20 MG1 tablet Orally Once a dayActiveOmeprazole 20 MG1 capsule 30 minutes before morning meal Orally Once a dayActive Social History Tobacco Use: Social History Observation Description Date Details (start date - stop date) Current Smoker NA - NA Tobacco Control (Standard) Question Answer Notes Tobacco use: Current smoker How often do you smoke cigarettes?Every dayHow many cigarettes a day do you smoke?5 or lessAUDIT-C (Standard) Question Answer Notes Did you have a drink containing alcohol in the p ast year? Yes How often did you have six or more drinks on one occasion in the past year?Never (0 point)How many drinks did you have on a typical day when you were drinking in the past year?1 or 2 drinks (0 point)How often did you have a drink containing alcohol in the past year?Monthly or less (1 point)Kyullh9DchdfcnhbwmdznRtlzfiot Plan Of Treatment Pending Test Test Name Order Date CMP (COMPLETE METABOLIC PANEL) 4 HEMOGLOBIN A1C (GLYCO) 02/23/2024 INSULIN, TOTAL 02/23/2024 LIPID PANEL (CHOL/TRIG/HDL/LDL) 02/23/20 24 CBC WITH DIFF 02/23/2024 THYROID PANEL (T4/TSH/FREE T3) 4 Insurance Providers Payer Name Payer Address Payer Phone Subscriber Number Group Number Insured Name Patient Relationship to Insured Coverage Start Date Coverage End Date [employer] [place] [employer] [address] [place] [address] [id number] Tyler Staples - patient is the insured
--- OUTSIDE RECORDS SUMMARY | 2025-03-25 09:55 | XMS_ITS | Clinical Summary ---
Author Organization [facility] Healthcare Address [address] [place] [address] Care Team Providers Care Co Founder And Chief Strategy Officer Name Role Phone Sherman Martínez DO Unavailable Allergies No known active allergies Medications MedicationSigDispense QuantityRefillsLast FilledStart DateEnd DateStatus acetaminophen (Tylenol) 500 MG tablet Take 1,000 mg by mouth every 6 (six) hours if needed.Active NexIUM 2.5 MG packet 07/02/2023ctive venlafaxine XR (Effexor XR) 37.5 MG 24 hr capsule Indications:Anxiety, generalizedTAKE 1 CAPSULE BY MOUTH DAILY DO NOT CRUSH OR CHEW. 90 capsule 5Active metFORMIN (Glucophage) 500 MG tablet Indications:Encounter for weight managementTake 2 tablets (1,000 mg) by mouth in the morning. Take with meals. 60 tablet 11012/03/174275/6Active phentermine (Adipex-P) 37.5 MG tablet Indications:Encounter for weight managementTake 1 tablet (37.5 mg) by mouth in the morning. Take before meals. 30 tablet 5Active spironolactone (Aldactone) 25 MG tablet Indications:HirsutismTake 1 tablet (25 mg) by mouth Daily 30 tablet 1108/25/092362/256ActiveHospital, Clinic, or Other Facility Administered MedicationOrdered DoseRouteFrequencyStart DateEnd DateStatus Levonorgestrel intrauterine device 52 mg Indications:Encounter for IUD gnrtqlokc31 gmESUrinfptbfw36/10/202409/01/2029 Active Encounters DateTypeDepartmentCare LuraGbkebchhlfp92/29/2025bstract [facility] [address] [place] [address] [place] [phone] Sherman Martínez, 03/20/2025bstract [facility] [address] [place] [address] Sherman Martínez, 03/04/2025 11:10 AM EDTConsult [facility] [address] [place] [address] Sherman Martínez DO Pre-op evaluation; Request for twvhyvuluzaqi11/13/2025ambmaureen flowsheet [facility] [address] [place] [address] Sherman Martínez DO 01/31/2025 2:10 PM EDTClinical Support [facility] [address] [place] [address] 01/22/2025Orders Only [facility] [address] [place] [address] Argenis Chu LPN 01/14/2025 11:00 AM EDTOffice Visit [facility] [address] [place] [address] Sherman Martínez DO Hirsutism (Primary Dx); Well woman exam with routine gynecological exam01/14/2025linisync Result Encounter [facility] External Department Unsolicited Sherman Martínez DO 01/14/2025zion flowsheet [facility] [address] [place] [address] Sherman Martínez DO from Last 3 Months Family History Medical HistoryRelationNameCommentsHypertensionFatherJerryStrokeFatherJerry Autoimmune diseaseMotherSuzanneCirrhosisMotherSuzanneDiabetesMotherSuzanneHeart failureMotherSuzanneHypertensionMotherSuzanneRelationNameStatusCommentsFather JerryMotherSuzanne Social History Tobacco UseTypesPacks/DayYears UsedDateSmoking Tobacco: Every DayCigarettes0.515 Smokeless Tobacco: Never Tobacco Cessation:Ready to Q uit: Not Asked; Counseling Given: Not Answered Comments:Smokes within 5 minutes of waking up Alcohol UseStandard Drinks/WeekCommentsNot Currently0 (1 standard drink = 0.6 oz pure alcohol)CommentsNoSex and Gender InformationValueDate RecordedSex Assigned at BirthNot on fileLegal WxjFjtjcr13/15/2023 11:47 PM EDTGender IdentityNot on fileSexual OrientationNot on file Last Filed Vital Signs Vital SignReadingTime TakenCommentsBlood Ylirwbed170/8803/04/2025 11:26 AM EDT Pulse--Temperature--Respiratory Rate--Oxygen Saturation--Inhaled Oxygen Concentration--Uuuwyg800 kg (240 lb)03/04/2025 11:26 AM BIYBcfluv868.6 cm (5' 6 )03/04/2025 11:26 AM EDTBody Mass Index38.7403/04/2025 11:26 AM EDT Plan of Treatment DateTypeDepartmentCare Team (Latest Contact Info)Aguouenrysy98/24/2025 9:30 AM ESTOffice Visit [facility] [address] [place] [address] Jesi Jimenez PA [address] [facility] [address] [place], [place] [address] 01/20/2026 11:00 AM EDTProcedure Visit [facility] [address] [place] [address] Sherman Martínez DO [address] [facility] [place] [address] Health MaintenanceDue DateLast DoneCommentsMMR Vaccines (1 of 1 - Standard series)1987DTaP/Tdap/Td Vaccines (1 - Tdap)1993Varicella Vaccines (1 of 2 - 13+ 2-dose series)1999Hepatitis B Vaccines (1 of 3 - 19+ 3-dose series)2005Pneumococcal Vaccine: Pediatrics (0 to 5 Years) and At-Risk Patients (6 to 64 Years) (1 of 2 - PCV)2005HPV Vaccines (1 - 3-dose SCDM series)2013COVID-19 Vaccine (3 - season), 01/27/2021Influenza Vaccine (#1)2025Pap Smear/, 01/03/2024, 11/17/2022ervical Cancer Zuqdrwkap36/13/2029HPV/Meutcz2301/02/2029 12/06/2022HIB VaccinesAged OutNo longer eligible based on patient's age to complete this topicHepatitis A VaccinesAged OutNo longer eligible based on patient's age to complete this topicIPV VaccinesAged OutNo longer eligible based on patient's age to complete this topicMeningococcal B VaccineAged OutNo longer eligible based on patient's age to complete this topicMeningococcal VaccineAged OutNo longer eligible based on patient's age to complete this topicRotavirus VaccinesAged OutNo longer eligible based on patient's age to complete this topic Procedures Procedure NamePriorityDate/TimeAssociated DiagnosisCommentsIGP,APTIMA HPV,AGE KBLAHeqztsa88/25/2025 10:58 AM EDT PAP NXCJNYnmzpkj09/25/2025 12:00 AM EDTTHINPREP PAP AND HPV MRNA E6/E7 W/RFL HPV 16,18/62Aqdawqm40/17/2023 1:48 PM EDT Well woman exam with routine gynecological exam from Last 3 Months or Most Recently Relevant to Health Maintenance Results * IGP,APTIMA HPV,AGE GDLN (01/14/2025 10:58 AM EDT)ComponentValueRef RangeTest MethodAnalysis TimePerformed AtPathologist SignatureAGE GDLN ACOG TESTINGNote. TBHComment: ?? TESTS ? RESULT ??FLAG ??UNITS ?REF RANGE ??LAB ?? Clinician Provided Cytology Information ?? Source.............Cervix;Endocervix ?? No. of containers..01 ThinPrep Vial Age Algo ACOG Kenzie... ??30-65 ? 01 ?FLAG LEGEND: ?L-Low Normal,H-High Normal,LL-Alert Low,HH-Alert High <-Panic Low,>-Panic High,A-Abnormal,AA-Critical Abnormal Performed at: 01 =G ?[facility] [place] ?? [address] [place] ??[phone] ?? Joyce Pinzon MD, IGP, APTIMA HPV, RFX 16/18,45Note.TBHComment: ?? TESTS ? RESULT ??FLAG ??UNITS ?REF RANGE ??LAB DIAGNOSIS: ?02 ?? NEGATIVE FOR INTRAEPITHELIAL LESION OR MALIGNANCY. Specimen adequacy: ?02 ?? Satisfactory for evaluation. ??Endocervical and/or squamous metaplastic ?? cells (endocervical component) are present. Performed by: ? 02 ?? Zee Syed, Template Storage Clerk (ASCP) . ? 02 Note: ? Note ?02 ?? The Pap smear is a screening test designed to aid in the ?? detection of premalignant and malignant conditions of the ?? uterine cervix. ??It is not a diagnostic procedure and ?? should not be used as the sole means of detecting cervical ?? cancer. ??Both false-positive and false-negative reports do ?? occur. Test Methodology: ? Note ?02 ?? This liquid based ThinPrep(R) pap test was screened with ?? the use of an image guided system. HPV Genotype Reflex ?? Note ?02 ?? Criteria not met, HPV Genotype not performed. ?FLAG LEGEND: ?L-Low Normal,H-High Normal,LL-Alert Low,HH-Alert High <-Panic Low,>-Panic High,A-Abnormal,AA-Critical Abnormal Performed at: 02 WB ?[facility] [place] ?? [address], [place] ??[phone] ?? Joyce Pinzon MD, HPV APTIMANegativeNegativeTBHComment: This nucleic acid amplification test detects fourteen high- risk HPV types (16,18,31,33,35,39,45,51,52,56,58,59,66,68) without differentiation. Performed at: ??=G - [facility] [address] ??[id number] Senior Investment Manager: Joyce Pinzon MD, Phone: ??[phone] Performed at: ?? - [facility] [address] ??[id number] Senior Investment Manager: Joyce Pinzon MD, Phone: ??[phone] Specimen (Source)Anatomical Location / LateralityCollection Method / Volume Collection TimeReceived Time01/14/2025 10:58 AM EDT01/14/2025 3:36 PM EDT Narrative [facility] - 01/17/2025 6:10 PM EDT BRUSH-SPATULA CERVIX ENDOCERVIX Authorizing ProviderResult TypeResult StatusCorey Tanya DOLAB BLOOD ORDERABLES Final ResultPerforming OrganizationAddressCity/State/[facility] CodePhone Number MELIDA [facility] * Pap Smear (01/14/2025 12:00 AM EDT)Specimen (Source)Anatomical Location / LateralityCollection Method / VolumeCollection TimeReceived TimeSwabCervical swab / Unknown Narrative Authorizing ProviderResult TypeResult StatusCorey Tanya DOLAB CYTOLOGY ORDERABLESFinal ResultPerforming OrganizationAddressCity/State/ZIP CodePhone Number EXTERNAL LAB * THINPREP PAP AND HPV MRNA E6/E7 W/RFL HPV 16,18/45 (12/06/2022 1:48 PM EDT) Narrative Authorizing ProviderResult TypeResult StatusCorey Tanya DOLAB BLOOD ORDERABLES Final ResultPerforming OrganizationAddressCity/State/ZIP CodePhone Number EXTERNAL LAB from Last 3 Months or Most Recently Relevant to Health Maintenance Insurance Care Teams Team MemberRelationshipSpecialtyStart DateEnd Date Sherman Martínez DO [address] [place], [place] [address] [address] PCP - [facility]05/23/24
--- OUTSIDE RECORDS SUMMARY | 2025-03-25 09:55 | XMS_ITS | Clinical Summary ---
Author Organization [employer] [facility] Address [id number] [place] [address] Care Team Providers Care Health Teacher Name Role Phone No Pcp, No Pcp Primary Care Provider Unavailabl e Allergies No known active allergies Medications MedicationSigDispense QuantityRefillsLast FilledStart DateEnd DateStatus ondansetron ODT (ZOFRAN-ODT) 4 mg disintegrating tablet Dissolve 1 tablet (4 mg total) on tongue every 6 (six) hours as needed for nausea or vomiting.Active no122/iron/folic acid ( MULTI ORAL) Take 1 tablet by mouth daily.Active esomeprazole (NexIUM) 20 mg capsule Take 20 mg by mouth every morning before breakfast.Active acetaminophen (TYLENOL) 500 mg tablet Take 2 tablets (1,000 mg total) by mouth every 6 (six) hours as needed for pain. Active aspirin 81 mg Take 1 tablet (81 mg total) by mouth in the morning.Active omeprazole (PriLOSEC) 20 mg capsule Take 1 capsule (20 mg total) by mouth in the morning.Active Active Problems ProblemNoted DateDiagnosed DateMultigravida of advanced maternal age in second xyegyghtt51/24/2023 Family History Medical HistoryRelationNameCommentsHepatitisBrotherDiabetesMaternal Grandfather DiabetesMaternal GrandmotherDiabetesMotherHeart diseaseMotherHypertensionMother Mental illnessMotherThyroid diseaseMotherDiabetesPaternal GrandmotherRelation NameStatusCommentsBrotherMaternal GrandfatherDeceasedMaternal Grandmother DeceasedMotherPaternal GrandfatherDeceasedPaternal GrandmotherDeceased Social History Tobacco UseTypesPacks/DayYears UsedDateSmoking Tobacco: Every DayCigarettes Smokeless Tobacco: NeverAlcohol UseStandard Drinks/WeekCommentsNot Currently0 (1 standard drink = 0.6 oz pure alcohol)ChildcareAnswerDate RecordedChildcare Qjrhrxh9111/02/2018EmploymentAnswerDate VrcdctzxJdxnuiymguGzkcdal16/13/2019Hunger ScreeningAnswerDate RecordedWithin the past 12 months we worried whether our food would run out before we got money to buy more.Never True12/13/2022Within the past 12 months the food we bought just didn't last and we didn't have money to get more.Never True3Purpose - LifeAnswerDate RecordedPurpose and direction in sfoiQhnhhyh68/11/2021CommentsNoSex and Gender Information ValueDate RecordedSex Assigned at BirthNot on fileLegal KkgFhccty36/27/2018 12:22 PM EDTGender IdentityNot on fileSexual OrientationNot on file Last Filed Vital Signs Vital SignReadingTime TakenCommentsBlood Twoubzhx526/6407 10:33 AM EDT Vtbcf1612 10:33 AM EDTTemperature--Respiratory Rate--Oxygen Saturation-- Inhaled Oxygen Concentration--Awomra856.6 kg (261 lb 6.4 oz)12/13/2022 10:33 AM RVHJywppk009.6 cm (5' 6 )09/29/2017 2:42 PM EDTBody Mass Index42.19009/29/2017 2:42 PM EDT Plan of Treatment Health MaintenanceDue DateLast DoneCommentsDepression Qxengtwtf31/18/1999Tobacco Jluihxeev73/18/1999DTaP,Tdap and Td Vaccines (1 - Tdap)2005Pap Smear 2007dult BMI Ocmbtaaos45OVID-19 Vaccine (3 - 2024- season)510/, 01/27/2021Influenza Clbsamu0601/21/2025 Medical Devices Not on file Insurance Care Teams Team MemberRelationshipSpecialtyStart DateEnd Date No Pcp, [place] [address] [facility]
--- OUTSIDE RECORDS SUMMARY | 2025-03-25 09:55 | XMS_ITS | Encounter Summary ---
Author Organization [facility] Address [address] [place] [address] Care Team Providers Care Call Out Clerk Name Role Phone Sherman Martínez DO Unavailable Encounter Details DateTypeDeozarks community hospitalCare Team (Latest Contact Info)Ofpahwbbaxe17/29/2025bstract [facility] [address] [place] [address] [place] [address] Sherman Martínez [address] [facility] [address] [place], [facility] Social History Tobacco UseTypesPacks/DayYears UsedDateSmoking Tobacco: Every DayCigarettes0.515 Smokeless Tobacco: Never Comments:Smokes within 5 min utes of waking up Alcohol UseStandard Drinks/WeekCommentsNot Currently0 (1 standard drink = 0.6 oz pure alcohol)CommentsNoSex and Gender InformationValueDate RecordedSex Assigned at BirthNot on fileLegal WqfGuwfrv17/15/2023 11:47 PM EDTGender IdentityNot on fileSexual OrientationNot on filedocumented as of this encounter Plan of Treatment DateTypeDeozarks community hospitalCare Team (Latest Contact Info)Wibtlqytkvv08/24/2025 9:30 AM ESTOffice Visit [facility] [address] [facility] [place] [address] Jesi Jimenez PA [address] [facility] [address] [place], [facility] 01/20/2026 11:00 AM EDTProcedure Visit [facility] [address] [place] [address] [place] [address] Sherman Martínez DO [address] [place] [address] documented as of this encounter Visit Diagnoses Not on filedocumented in this encounter Care Teams Team MemberRelationshipSpecialtyStart DateEnd Date Sherman Martínez DO [address] [place] [address] PCP - [facility]05/23/24documented as of this encounter
--- OUTSIDE RECORDS SUMMARY | 2025-03-25 09:55 | XMS_ITS | Encounter Summary ---
Author Organization [facility] Address [address] [place] [address] Care Team Providers Care Promotions Officer Name Role Phone Sherman Martínez DO Unavailable Encounter Details DateTypeDearkansas state psychiatric hospitalCare Team (Latest Contact Info)Pupqmyrfnvt25/29/2025bstract [facility] [address] [place] [address] [place] [address] Sherman Martínez [address] [facility] [address] [place], [facility] Social History Tobacco UseTypesPacks/DayYears UsedDateSmoking Tobacco: Every DayCigarettes0.515 Smokeless Tobacco: Never Comments:Smokes within 5 min utes of waking up Alcohol UseStandard Drinks/WeekCommentsNot Currently0 (1 standard drink = 0.6 oz pure alcohol)CommentsNoSex and Gender InformationValueDate RecordedSex Assigned at BirthNot on fileLegal DbjEskxfc46/15/2023 11:47 PM EDTGender IdentityNot on fileSexual OrientationNot on filedocumented as of this encounter Plan of Treatment DateTypeDearkansas state psychiatric hospitalCare Team (Latest Contact Info)Ocruwiqkpux35/24/2025 9:30 AM ESTOffice Visit [facility] JON[facility] [address] [facility] [place] [address] Jesi Jimenez PA [address] [facility] [address] [place], [facility] 01/20/2026 11:00 AM EDTProcedure Visit [facility] J[facility] [address] [place] [address] [place] [address] Sherman Martínez DO [address] [place] [address] documented as of this encounter Visit Diagnoses Not on filedocumented in this encounter Care Teams Team MemberRelationshipSpecialtyStart DateEnd Date Sherman Martínez DO [address] [place] [address] PCP - [facility]05/23/24documented as of this encounter
--- NOTE | 2025-03-25 10:23 | XR_ITS ---
The [address] [address] Patient Name: GERTRUDIS MARINELLI MRN: [id number] date: 1985 Sex: F Assigned Patient [facility]: [facility] Current Patient Location: [facility] Accession/Order Number: [id number] Exam Date: 03/25/2025 10:50 Report Date: 03/25/2025 11:51 At the request of: ALVIN SPEAR DO Procedure: XR chest 2V PA AND LATERAL CHEST: CLINICAL HISTORY: Preoperative clearance. Tobacco use. COMPARISON: None There is no focal parenchymal consolidation, effusion or pneumothorax. The cardiac, hilar and mediastinal silhouettes are within normal limits. There is no vascular congestion. The visualized bony thorax is intact. There is mild endplate spurring. XR/XR chest 2V IMPRESSION: NO ACUTE CARDIOPULMONARY ABNORMALITY. Impression dictated by: Tammie Wahl M.D. 03/25/2025 11:51 AM Dictation Location: [place] [address] Electronically authenticated by: [id number] Y Date: 03/25/2025 11:51
--- NOTE | 2025-03-25 10:43 | PM.PRESUREVA ---
History of Present Illness History of Present Illness Chief complaint: requests sterilization Narrative: Patient presents for presurgical testing. The patient is requesting sterilization and is scheduled for a salpingectomy. The patient denies any complaints. She states she does have a history of -induced hypertension. Review of Systems ROS Narrative REVIEW OF SYSTEMS: Negative except as stated in HPI, ten or more systems reviewed. Constitutional: No fever, chills, weakness ENT: No sore throat or epistaxis Cardiovascular: No edema, chest pain, palpitations, or activity intolerance Respiratory: No shortness of breath, cough, or wheezing Musculoskeletal: No joint pain or swelling Gastrointestinal: No abdominal pain, constipation, diarrhea, or vomiting Genitourinary: No dysuria or hematuria Neurological: No numbness, tingling, weakness, or headache Psychiatric: No mood changes PFSH PFS Medical History (Updated 03/25/25 @ 10:21 by Verenice Carson NP) Low iron ?E61.1 - Iron deficiency (ICD-10) PTSD (post-traumatic stress disorder) ?F43.10 - Post-traumatic stress disorder, unspecified (ICD-10) Panic attacks ?F41.0 - Panic disorder [episodic paroxysmal anxiety] (ICD-10) Depression ?F32.A - Depression, unspecified (ICD-10) Anxiety ?F41.9 - Anxiety disorder, unspecified (ICD-10) Snores ?R06.83 - Snoring (ICD-10) Request for sterilization ?Z30.2 - Encounter for sterilization (ICD-10) GERD (gastroesophageal reflux disease) ?K21.9 - Gastro-esophageal reflux disease without esophagitis (ICD-10) PCOS (polycystic ovarian syndrome) ?E28.2 - Polycystic ovarian syndrome (ICD-10) Edentulism ?K08.109 - Complete loss of teeth, unspecified cause, unspecified class (ICD-10) Toxemia in ?O14.90 - Unspecified pre-eclampsia, unspecified trimester (ICD-10) induced hypertension ?O13.9 - Gestational [-induced] hypertension without significant proteinuria, unspecified trimester (ICD-10) Pre-eclampsia ?O14.90 - Unspecified pre-eclampsia, unspecified trimester (ICD-10) Surgical History (Updated 03/25/25 @ 10:19 by Verenice Carson NP) H/O tooth extraction ?K08.409 - Partial loss of teeth, unspecified cause, unspecified class (ICD-10) Family History (Updated 03/25/25 @ 10:19 by Verenice Carson NP) Other CHF (congestive heart failure) Cirrhosis Family history of breast cancer Family history of diabetes mellitus Family history of heart disease Family history of hypertension Family history of stroke Social History (Updated 03/25/25 @ 10:15 by Verenice Carson NP) Within the past year, how often did you have a drink containing alcohol: monthly or less Smoking status: Current every day smoker What tobacco products do you use: cigarettes Cigarettes per day: 5 Years smoked: 20 Smoking pack-years: 5.00 Do you use any of these nicotine containing products: vaping products Non-prescribed substance use: cannabis (any form) Previous occupational history: [employer] Highest level of school completed/degree received: high school graduate Meds Home Medications and Allergies Home Medications ?Medication ?Instructions ?Recorded ?Confirmed ?Type acetaminophen 500 mg tablet 1,000 mg PO Q6H PRN pain 04/08/23 03/25/25 History (Tylenol Extra Strength) omeprazole 20 mg tablet,delayed 20 mg PO DAILY 04/08/23 03/25/25 History release ibuprofen 200 mg tablet 800 mg PO TID 03/25/25 03/25/25 History metformin 500 mg tablet 1,000 mg PO DAILY 03/25/25 03/25/25 History spironolactone 25 mg tablet 25 mg PO DAILY 03/25/25 03/25/25 History venlafaxine 37.5 mg 37.5 mg PO DAILY 03/25/25 03/25/25 History capsule,extended release 24 hr Allergies Allergy/AdvReac Type Severity Reaction Status Date / Time No Known Drug Allergies Allergy Verified 03/25/25 10:09 Exam Narrative Exam Narrative: Constitutional: Awake, alert, comfortable, well-appearing, nontoxic, interactive, vital signs as charted Head: Normocephalic, atraumatic Neck: Supple, normal appearance, normal range of motion, no meningeal signs, no lymphadenopathy Respiratory: No respiratory distress, breath sounds clear Cardiovascular: Regular rate and rhythm, strong and regular heart tones Abdomen: Nontender, normal bowel sounds, soft, no CVA tenderness Musculoskeletal: Normal gait, no swelling or edema Skin: No rashes or induration, no lesions, only visible skin inspected Neuro: No neurological deficits, normal sensation Psychiatric: Oriented ?3, normal affect Assessment and Plan Assessment and Plan (1) Request for sterilization: Plan Robot-assisted bilateral laparoscopic salpingectomy scheduled with Dr. Martínez April 05, 2025.
== END 2025-03-25 09:49 | disposition home or self-care (01) ==
PROVIDERS: Visit Provider Obstetrics & Gynecology
DX: Z01.810 Encounter for preprocedural cardiovascular examination (principal); Z01.818 Encounter for other preprocedural examination
CPT/HCPCS: 71046; G0463

== ENCOUNTER 2025-04-05 06:10 | Day surgery (SDC) | payer OTHER, SELFPAY ==
[2025-03-25 10:33] VITALS: BP 158/85; PULSE 99; TEMP 36.3; O2SAT 100; BMI 40.5
[2025-04-05] VITALS (24 sets, daily range): BP systolic 148–181; BP diastolic 93–121; PULSE 78–100; TEMP 36.1–36.6; O2SAT 89–100; BMI 40.1
--- OUTSIDE RECORDS SUMMARY | 2025-04-05 06:14 | XMS_ITS | Patient Health Record ---
Author Organization [facility] [place] Address [address] [place] [address] Care Team Providers Care Mixer Operator Vacuum Pan Salt Name Role Phone Alejandra Tania Primary Care Provider [phone] Allergies No Known Allergies Reason For Referral [...] in the past year?Monthly or less (1 point)Qbthit2QspverxfrfyzljZngsbdfg Plan Of Treatment Pending Test Test Name [...] End Date [employer] [place] [employer]ICA[employer] [address] [place] [address] [id number] Tyler Staples - patient is the insured
[2025-04-05 06:26] LABS: Hematocrit 42.7 % (36.0-48.0); Hemoglobin 13.9 g/dL (12.0-16.0); Immature Granulocytes Abs Auto 0.02 10^3/uL (0.00-0.03); Immature Granulocytes Pct Auto 0.2 % (0.0-0.5); Lymphocytes Absolute Auto 5.0 10^3/uL (1.2-3.8); Mean Corpuscular HGB Conc 32.6 g/dL (29.9-35.2); Mean Corpuscular Hemoglobin 29.0 pg (26.7-34.0); Mean Corpuscular Volume 89.0 fL (81.0-99.0); Platelet Count 329 10^3/uL (150-450); Red Blood Count 4.80 10^6/uL (4.20-5.40); White Blood Count 11.3 10^3/uL (4.0-11.0)
--- NOTE | 2025-04-05 08:47 | P.ON_ITS ---
Brief Operative Note Date of procedure: 04/05/25 Pre-op diagnosis general: desires permanent sterilization, rt ovarian cyst Post-op diagnosis: same as pre-op Procedure: NAME OF PROCEDURE: robotic assisted bilateral laparoscopic salpingectomy, rt ovarian cystotomy PROCEDURE: The patient was taken back to the Operating Room where she was given general anesthesia without difficulty. She was then prepped and draped in the normal sterile fashion after being placed in a dorsal lithotomy position. A wet sponge stick was placed into the patient's vagina. Attention was then turned to the patient's abdomen, where a scalpel was used to make a small infraumbilical incision. The S retractors were then used to dissect the underlying layers until the fascia could be seen. The fascia was then grasped with Yayo clamps and t ented up. A knife was then used to make a small incision to the fascia. The muscle was identified, at that time two sutures of #0 Vicryl on a GI needle was then used and placed through the fascia. the peritoneum was then identified and entered bluntly. The 10-4 Martin was then placed into the patient's abdomen. This was confirmed with direct visualization of the bowel, using the laparoscope. The patient's abdomen was then insufflated using approximately 4 liters of CO2 gas. Survey of the patient's abdomen demonstrated ovaries were normal in appearance as well as both tubes and uterus. A second and third rt and lt lateral robotic ports which were 8 mm in size, was then placed after the skin incision was made under direct visualization . the robotic arms were engaged. The patient's tube on the patient's right side was identified and tented up using a grasper, the ligasure apparatus was then used to come across the mesosalpingx from the fimbriated end to the insertion site at the uterus, the tube was then amputated and removed in its entirety. This was done on the contralateral side. The tubes were the removed from the patients abdomen. Excellent hemostasis was noted. The lateral ports were then moved under direct visualization with excellent hemostasis. All instruments were removed from the patient's abdomen. The fascia was closed using the #0 Vicryl on GI needle. The skin was closed using 4-0 Vicryl subcuticularly. All instruments were removed from the patient's vagina as well. The patient was taken out of the dorsal lithotomy position and placed in the supine position and taken to recovery in stable condition. Sponge, lap and needle counts were correct x2. please note rt ovarian cystotomy using the vessel sealer Anesthesia: VIGNESH Surgeon: Sherman Martínez Combine Inspector: Selina Adams Estimated blood loss (mL): 5 Pathology: other (tubes) Condition: stable Disposition: PACU Urinary Catheter Management Urinary Catheter Management Urethral: Cath placed during this visit: no
[2025-04-05] MEDS: HYDRALAZINE HCL 20 MG/ML VIAL 5 MG IVP (09:38)
[2025-04-05] MEDS: HYDROCODONE/ACET 5-325 MG TABLET 1 TAB PO (09:45)
--- NOTE | 2025-04-05 09:52 | PC.NURSE ---
0939- Patient medicated with Hydralazine for blood pressure.
[2025-04-05] MEDS: HYDRALAZINE HCL 20 MG/ML VIAL 10 MG IVP (10:04)
--- NOTE | 2025-04-05 10:11 | PC.NURSE ---
(1004) Patient remedicated with Hydralazine for blood pressure.
--- NOTE | 2025-04-05 13:32 | PC.NURSE ---
(6030) Talked to patient at length about the importance of having a controlled blood pressure. Patient states that she is going to make an appointment with her doctor. Instructed patient to go to the ER for headache, blurred vision or slurred speech. Patient and patient's verbalized an understanding.
== END 2025-04-05 11:43 | disposition home or self-care (01) ==
LOC: SURGOUT 06:11
PROVIDERS: Visit Provider Obstetrics & Gynecology
PROC: (CPT 840; principal; 2025-04-05 07:30)
DX: Z30.2 Encounter for sterilization (principal); N83.201 Unspecified ovarian cyst, right side; N83.8 Other noninflammatory disorders of ovary, fallopian tube and broad ligament; F17.210 Nicotine dependence, cigarettes, uncomplicated; E66.01 Morbid (severe) obesity due to excess calories; Z68.43 Body mass index [BMI] 50.0-59.9, adult; I10 Essential (primary) hypertension; K21.9 Gastro-esophageal reflux disease without esophagitis; F41.9 Anxiety disorder, unspecified; F32.A Depression, unspecified; F43.10 Post-traumatic stress disorder, unspecified
CPT/HCPCS: 58661; 58662; 36415; 84702; 85025; 88302; J0360; J1100; J1885; J2003; J2250; J2405; J2704; J3010